=== PATIENT | male | born 1950 | race Caucasian/White ===

== ENCOUNTER → 2021-07-10 10:28 | Outpatient (BNVA) | payer MEDICARE, SELFPAY | PROVIDERS: PCP Internal Medicine; Visit Provider Urology | DX: N40.0 Benign prostatic hyperplasia without lower urinary tract symptoms (principal); R31.29 Other microscopic hematuria | CPT/HCPCS: 51798; 99212 ==

== ENCOUNTER → 2022-07-10 09:26 | Outpatient (BNVA) | payer MEDICARE, SELFPAY | PROVIDERS: PCP Internal Medicine; Visit Provider Urology | DX: N40.0 Benign prostatic hyperplasia without lower urinary tract symptoms (principal); R31.29 Other microscopic hematuria | CPT/HCPCS: 51798; 99212 ==

== ENCOUNTER 2023-07-15 09:30 | Outpatient (AMB) | payer MEDICARE, SELFPAY ==
--- NOTE | 2023-07-15 09:36 | A.OFFVIS_ITS ---
Intake Intake Visit Reasons: 1Y PSA(SET) Intake Note: Patient is present for Follow Up PSA/PVR Urology Med: Finasteride Antibiotic Allergy:None Blood Thinner: None Pharmacy: [facility] Delivery PVR: 15 Allergies lisinopril Allergy (Unknown, Verified 07/15/23 09:39) Unknown HPI HPI Comments History of Present Illness Details Chandler CHANG is a very pleasant male. He is a patient of Dr Bailey. He is seen for the following urologic conditions. - lower urinary tract symptoms Continued effective bladder emptying Low PSA Cut finasteride back to Wednesday and Lower Urinary Tract Symptoms:? Feels very happy on finasteride ?05/15 surgery with retention and catheter at [facility]. Initial placed on alpha armida..? Current treatment includes?medication, alpha armida, 5AR.? Prostate Symptom Score?01/16 , Moderate (9-19), Bother 3.? Symptoms include?01/16 , incomplete emptying, weak stream, nocturia (>2), and are progressing ?07/16 , weak stream, nocturia (>2), and are improving.? Prior Prostate Score?unknown.? PSA?06/15 2.9, 01/17 1.4, 01/18 1.2, 05/20 0.9, 06/20 0.6 ? Prostate volume?30-50gm.? Testing at next visit will include?bladder scan.? [facility] History Acquired torsion dystonia Bladder outlet obstruction BPH (benign prostatic hyperplasia) Diverticulosis of colon Essential hypertension, benign H/O urinary retention History of squamous cell carcinoma Microscopic hematuria Mitral regurgitation Nocturia Right knee meniscal tear Weak urinary stream Surgical History History of surgery Review of Systems Const Denies chills and Denies fever(s) Card Reports no additional complaints and Denies syncope Resp Denies cough GI Denies abdominal pain and Denies heartburn Reports as per HPI and Denies change in libido Neuro Denies syncope Psych Denies change in libido Endo Denies change in libido Physical Exam Const General: cooperative, healthy appearing, comfortable and no acute distress Orientation/consciousness: patient oriented x3 HEENT Face and sinus: Yes normal facial exam Mouth: moist mucous membranes Neck Neck: Yes normal visual inspection, Yes full ROM and Yes trachea midline Chest Chest palpation & inspection: normal inspection of the chest Resp Effort & Inspection: normal respiratory effort, able to speak in complete sentences and no respiratory distress GI Inspection: Yes normal to inspection Back/Spine/Pelvis Cervical Spine: normal cervical lordosis Thoracic/Lumbar Spine: thoracic and lumbar spine normal to inspection Skin General skin exam: no rashes or lesions noted Neuro General: patient oriented x3, gait normal, tone normal and moves all extremities Extrem General: Yes normal to inspection and Yes capillary refill normal Office Procedures Post Void Residual Post Residual Void Post Void Residual (PVR): 15 60319-[id number] Void Residual by ultrasound Results AMB Urinalysis, Automated UA Leukoctes 0 Wen/uL Last Edit by HAL Momin on 07/15/23 09:45 UA Nitrite Negative Last Edit by Sania Vidal [facility] on 07/15/23 09:45 UA Urobilinogen 0.2 mg/dL Last Edit by Sania Vidal Mark on 07/15/23 09:4 5 UA Protein 0 mg/dL Last Edit by Sania Vidal [facility] on 07/15/23 09:45 UA pH 6.0 Last Edit by Sania Vidal [facility] on 07/15/23 09:45 UA Blood 10 Junaid/uL Last Edit by Sania Vidal Mark on 07/15/23 09:45 UA Specific [place] 1.005 Last Edit by Sania Vidal [facility] on 07/15/23 09: 45 UA Ketone Negative Last Edit by HAL Momin on 07/15/23 09:45 UA Bilirubin 0 mg/dL Last Edit by Sania Vidal [facility] on 07/15/23 09:45 UA Glucose 0 mg/dL Last Edit by Sania Vidal [facility] on 07/15/23 09:45 Results Reviewed Results Reviewed: Laboratory Last Values Urine pH (Auto) 6.0 07/15/23 09:40 Specific [place] (Auto) 1.005 07/15/23 09:40 Urine Protein (Auto) 0 mg/dL 07/15/23 09:40 Glucose (UA)(Auto) 0 mg/dL 07/15/23 09:40 Urine Ketones (Auto) Negative 07/15/23 09:40 Urine Blood (Auto) 10 Junaid/uL 07/15/23 09:40 Urine Nitrite (Auto) Negative 07/15/23 09:40 Urine Bilirubin (Auto) 0 mg/dL 07/15/23 09:40 Urine Urobilinogen (Auto) 0.2 mg/dL 07/15/23 09:40 Leukocyte Esterase (Auto) 0 Wen/uL 07/15/23 09:40 Assessment & Plan Assessment & Plan (1) BPH (benign prostatic hyperplasia): Code(s): N40.0 - Benign prostatic hyperplasia without lower urinary tract symptoms Plan Twelve month follow-up Orders: Orders AMB Urinalysis Automated Today Z13.9 - Encounter for screening, unspecified AMB Post Void Residual by ultrasound Today N40.0 - Benign prostatic hyperplasia without lower urinary tract symptoms Patient Instructions: Imaging studies, laboratory and physical exam results were discussed and reviewed in detail. No major barriers to patient understanding were identified. An opportunity to ask questions regarding the treatment plan was provided. All questions were answered. The patient expressed understanding and agreement with the above treatment plan. The patient is aware they should contact our office by phone for worsening of their current condition or the appearance of new urologic symptoms. Compliance is encouraged with any medications and followup testing that is ordered. It is a privilege to participate in the urologic care of your patient. If you have any questions or concerns regarding treatment for the above conditions, or other urologic issues, please do not hesitate to contact me. The office telephone contact is [phone]. This note is constructed using voice recognition software. While every effort has been made to ensure accuracy procedures analyst errors may have been included. Yours sincerely, Dr Derrek Duong MD, [place] [facility] - Urology Providers of Expert, Compassionate Care for the Genitourinary System Coding Level of Care Code Est Pt Level 4 (10866) Diagnoses BPH (benign prostatic hyperplasia) N40.0 CPT Codes Post Residual Void - PVR CPT Code: 61557-Cmql Void Residual by ultrasound ([id number])
== END 2023-07-15 10:16 | disposition home or self-care (01) ==
PROVIDERS: PCP Internal Medicine; Visit Provider Urology
DX: N40.0 Benign prostatic hyperplasia without lower urinary tract symptoms (principal)
CPT/HCPCS: 99214

== ENCOUNTER → 2023-07-15 09:30 | Outpatient (BNVA) | payer MEDICARE, SELFPAY | PROVIDERS: Visit Provider Urology | DX: N40.0 Benign prostatic hyperplasia without lower urinary tract symptoms (principal) | CPT/HCPCS: 51798; 81003; 99212 ==

== ENCOUNTER 2024-07-18 09:23 | Outpatient (REF) | payer MEDICARE, SELFPAY ==
[2024-07-18 16:42] LABS: Urine Cytology See Pathology rpt
== END 2024-07-18 09:24 | disposition home or self-care (01) ==
LOC: HO.LAB 09:23
PROVIDERS: PCP Internal Medicine; Visit Provider Urology
DX: R31.29 Other microscopic hematuria (principal); N40.0 Benign prostatic hyperplasia without lower urinary tract symptoms; N43.40 Spermatocele of epididymis, unspecified
CPT/HCPCS: 51798; 81003; 88112; 99212

== ENCOUNTER 2024-07-18 09:23 | Outpatient (AMB) | payer MEDICARE, SELFPAY ==
--- NOTE | 2024-07-18 09:28 | MHC.OFFVIS ---
Intake Visit Reasons: 1Y Follow Up-PVR/Urinalysis Intake Note: Patient is Present for PVR/Urinalysis Check Urology Med: Tamsulosin, Finasteride Antibiotic Allergy: None Blood Thinner: None Last PVR: 15 Todays PVR: 23ml Patient states he was prescribed Finasteride and was instructed to take it twice a week Patient states that he D/C Finasteride due to medication causing his Nipples to be Sore Assembler Cards And Announcements Required: No Allergies lisinopril Allergy (Unknown, Verified 07/18/24 09:30) Unknown Medication List - Last Reconciled 07/18/24 by Derrek Duong MD amlodipine 10 mg PO DAILY clonazepam mg PO losartan 100 mg PO DAILY losartan-hydrochlorothiazide 100-12.5 mg tabs PO potassium chloride mEq PO spironolactone 25 mg PO DAILY tamsulosin 0.4 mg PO DAILY 90 days trihexyphenidyl mg PO HPI Comments Details: Chandler CHANG is a very pleasant male. He is a patient of Dr Bailey. He is seen for the following urologic conditions. - lower urinary tract symptoms Low PVR Stopped finasteride secondary to nipple tenderness Remain on tamsulosin Reassurance provided 12 month follow-up PSA Has left-sided spermatocele Lower Urinary Tract Symptoms:? Feels very happy on finasteride ?05/15 surgery with retention and catheter at [facility]. Initial placed on alpha armida..? Current treatment includes?medication, alpha armida, 5AR.? Prostate Symptom Score?01/16 , Moderate (9-19), Bother 3.? Symptoms include?01/16 , incomplete emptying, weak stream, nocturia (>2), and are progressing ?07/16 , weak stream, nocturia (>2), and are improving.? Prior Prostate Score?unknown.? PSA?06/15 2.9, 01/17 1.4, 01/18 1.2, 05/20 0.9, 06/20 0.6 ? Prostate volume?30-50gm.? Testing at next visit will include?bladder scan.? [facility] Medical History BPH (benign prostatic hyperplasia) Essential hypertension, benign Acquired torsion dystonia Diverticulosis of colon Mitral regurgitation Right knee meniscal tear History of squamous cell carcinoma Microscopic hematuria Nocturia Weak urinary stream H/O urinary retention Bladder outlet obstruction Surgical History History of surgery Review of Systems Const Denies chills and Denies fever(s) Card Reports no additional complaints and Denies syncope Resp Denies cough GI Denies abdominal pain and Denies heartburn Reports as per HPI and Denies change in libido Neuro Denies syncope Psych Denies change in libido Endo Denies change in libido Physical Exam Const General: cooperative, healthy appearing, comfortable and no acute distress Orientation/consciousness: patient oriented x3 HEENT Face and sinus: Yes normal facial exam Mouth: moist mucous membranes Neck Neck: Yes normal visual inspection, Yes full ROM and Yes trachea midline Chest Chest palpation & inspection: normal inspection of the chest Resp Effort & Inspection: normal respiratory effort, able to speak in complete sentences and no respiratory distress GI Inspection: Yes normal to inspection Back/Spine/Pelvis Cervical Spine: normal cervical lordosis Thoracic/Lumbar Spine: thoracic and lumbar spine normal to inspection Skin General skin exam: no rashes or lesions noted Neuro General: patient oriented x3, gait normal, tone normal and moves all extremities Extrem General: Yes normal to inspection and Yes capillary refill normal Office Procedures Post Void Residual Post Residual Void Post Void Residual (PVR): 23 [id number]-Pwhx Void Residual by ultrasound Post Void Residual Post Residual Void Post Void Residual (PVR): 0 40042-Tkof Void Residual by ultrasound Results AMB Urinalysis, Automated UA Leukoctes 0 Wen/uL Last Edit by HAL Momin on 07/18/24 10:07 UA Nitrite Negative Last Edit by HAL Momin on 07/18/24 10:07 UA Urobilinogen 0.2 mg/dL Last Edit by HAL Momin on 07/18/24 10:07 UA Protein 0 mg/dL Last Edit by HAL Momin on 07/18/24 10:07 UA pH 6.0 Last Edit by HAL Momin on 07/18/24 10:07 UA Blood 25 Junaid/uL Last Edit by Saniaterell Vidal, RMA on 07/18/24 10:07 UA Specific [place] 1.000 Last Edit by Sania Vidal, RMA on 07/18/24 10:07 UA Ketone Negative Last Edit by Sania Vidal, RMA on 07/18/24 10:07 UA Bilirubin 0 mg/dL Last Edit by Saniaterell Vidal, RMA on 07/18/24 10:07 UA Glucose 0 mg/dL Last Edit by Saniaterell Vidal, RMA on 07/18/24 10:07 Results Reviewed Results Reviewed: Laboratory Last Values Urine pH (Auto) 6.0 07/18/24 09:31 Specific [place] (Auto) 1.000 07/18/24 09:31 Urine Protein (Auto) 0 mg/dL 07/18/24 09:31 Glucose (UA)(Auto) 0 mg/dL 07/18/24 09:31 Urine Ketones (Auto) Negative 07/18/24 09:31 Urine Blood (Auto) 25 Junaid/uL 07/18/24 09:31 Urine Nitrite (Auto) Negative 07/18/24 09:31 Urine Bilirubin (Auto) 0 mg/dL 07/18/24 09:31 Urine Urobilinogen (Auto) 0.2 mg/dL 07/18/24 09:31 Leukocyte Esterase (Auto) 0 Wen/uL 07/18/24 09:31 Assessment & Plan Assessment & Plan (1) BPH (benign prostatic hyperplasia): Code(s): N40.0 - Benign prostatic hyperplasia without lower urinary tract symptoms Category: Medical (2) Spermatocele: Code(s): N43.40 - Spermatocele of epididymis, unspecified Category: Medical Plan 12 month follow-up Orders: Orders AMB Post Void Residual by ultrasound Today N40.0 - Benign prostatic hyperplasia without lower urinary tract symptoms AMB Urinalysis Automated Today Z13.9 - Encounter for screening, unspecified Urine Cytology Today R31.29 - Other microscopic hematuria Prostate Specific Antigen 364 Days N40.0 - Benign prostatic hyperplasia without lower urinary tract symptoms Medications: Discontinued finasteride Discontinued Reason: Patient Completed Course 5 mg PO DAILY 90 days 90 tabs 3RF Patient Instructions: Imaging studies, laboratory and physical exam results were discussed and reviewed in detail. No major barriers to patient understanding were identified. An opportunity to ask questions regarding the treatment plan was provided. All questions were answered. The patient expressed understanding and agreement with the above treatment plan. The patient is aware they should contact our office by phone for worsening of their current condition or the appearance of new urologic symptoms. Compliance is encouraged with any medications and followup testing that is ordered. It is a privilege to participate in the urologic care of your patient. If you have any questions or concerns regarding treatment for the above conditions, or other urologic issues, please do not hesitate to contact me. The office telephone contact is [phone]. This note is constructed using voice recognition software. While every effort has been made to ensure accuracy homoeopath errors may have been included. Yours sincerely, Dr Derrek Duong MD, [place] [facility] - Urology Providers of Expert, Compassionate Care for the Genitourinary System Coding Level of Care Code Est Pt Level 4 (45949) Diagnoses BPH (benign prostatic hyperplasia) N40.0 Spermatocele N43.40 CPT Codes Post Residual Void - PVR CPT Code: 78779-Bumd Void Residual by ultrasound ([id number]) Post Residual Void - PVR CPT Code: 93072-Mvtt Void Residual by ultrasound ([id number])
== END 2024-07-18 10:23 | disposition home or self-care (01) ==
PROVIDERS: PCP Internal Medicine; Visit Provider Urology
DX: N40.0 Benign prostatic hyperplasia without lower urinary tract symptoms (principal); N43.40 Spermatocele of epididymis, unspecified; Z13.9 Encounter for screening, unspecified
CPT/HCPCS: 99214

== ENCOUNTER 2025-03-22 09:08 | Outpatient (AMB) | payer MEDICARE, SELFPAY ==
--- NOTE | 2025-03-22 09:36 | MHC.OFFVIS ---
Intake Visit Reasons: new lumps right testicle Intake Note: Patient is present for new lumps on right testicle Urology Med: Tamsulosin, Finasteride Antibiotic Allergy: None Blood Thinner: None PVR:57ml Sammying Machine Operator Required: No Allergies lisinopril Allergy (Unknown, Verified 03/22/25 09:37) Unknown HPI Comments Details: Chandler CHANG is a very pleasant male. He is a patient of Dr Bailey. He is seen for the following urologic conditions. - lower urinary tract symptoms Follow-up as had concerns regarding testicular mass Known left-sided spermatocele on exam proximally 3-4 cm Minimal bother Right side is developing a spermatocele as well Testicles normal Reassurance provided Laboratory work shows mildly elevated creatinine and is under investigation with Nephrology Recommend 10-15 lb weight loss Lower Urinary Tract Symptoms:? Remained stable with alpha-armida ?05/15 surgery with retention and catheter at [facility]. Initial placed on alpha armida..? Current treatment includes?medication, alpha armida, 5AR.? Prostate Symptom Score?01/16 , Moderate (9-19), Bother 3.? Symptoms include?01/16 , incomplete emptying, weak stream, nocturia (>2), and are progressing ?07/16 , weak stream, nocturia (>2), and are improving.? Prior Prostate Score?unknown.? PSA?06/15 2.9, 01/17 1.4, 01/18 1.2, 05/20 0.9, 06/20 0.6 ? Prostate volume?30-50gm.? Testing at next visit will include?bladder scan.? [facility] Medical History BPH (benign prostatic hyperplasia) Essential hypertension, benign Acquired torsion dystonia Diverticulosis of colon Mitral regurgitation Right knee meniscal tear History of squamous cell carcinoma Microscopic hematuria Nocturia Weak urinary stream H/O urinary retention Bladder outlet obstruction Surgical History History of surgery Review of Systems Const Denies chills and Denies fever(s) Card Reports no additional complaints and Denies syncope Resp Denies cough GI Denies abdominal pain and Denies heartburn Reports as per HPI and Denies change in libido Neuro Denies syncope Psych Denies change in libido Endo Denies change in libido Physical Exam Const General: cooperative, healthy appearing, comfortable and no acute distress Orientation/consciousness: patient oriented x3 HEENT Face and sinus: Yes normal facial exam Mouth: moist mucous membranes Neck Neck: Yes normal visual inspection, Yes full ROM and Yes trachea midline Chest Chest palpation & inspection: normal inspection of the chest Resp Effort & Inspection: normal respiratory effort, able to speak in complete sentences and no respiratory distress GI Inspection: Yes normal to inspection Back/Spine/Pelvis Cervical Spine: normal cervical lordosis Thoracic/Lumbar Spine: thoracic and lumbar spine normal to inspection Skin General skin exam: no rashes or lesions noted Neuro General: patient oriented x3, gait normal, tone normal and moves all extremities Extrem General: Yes normal to inspection and Yes capillary refill normal Assessment & Plan Assessment & Plan (1) Microscopic hematuria: Code(s): R31.29 - Other microscopic hematuria Category: Medical (2) BPH (benign prostatic hyperplasia): Code(s): N40.0 - Benign prostatic hyperplasia without lower urinary tract symptoms Category: Medical (3) Spermatocele: Code(s): N43.40 - Spermatocele of epididymis, unspecified Category: Medical Plan Keep follow-up appointment Patient Instructions: This note is constructed using voice recognition software. While every effort has been made to ensure accuracy staff software engineer errors may have been included. Imaging studies, laboratory and physical exam results were discussed and reviewed in detail. No major barriers to patient understanding were identified. An opportunity to ask questions regarding the treatment plan was provided. All questions were answered. The patient expressed understanding and agreement with the above treatment plan. The patient is aware they should contact our office by phone for worsening of their current condition or the appearance of new urologic symptoms. Compliance is encouraged with any medications and followup testing that is ordered. It is a privilege to participate in the urologic care of your patient. If you have any questions or concerns regarding treatment for the above conditions, or other urologic issues, please do not hesitate to contact me. The office telephone contact is [phone]. Sincerely, Dr Derrek Duong MD, [place] [facility] - Urology Compassionate Specialist Care for the Genitourinary System Coding Level of Care Code Est Pt Level 3 (06817) Diagnoses Microscopic hematuria R31.29 BPH (benign prostatic hyperplasia) N40.0 Spermatocele N43.40
--- OUTSIDE RECORDS SUMMARY | 2025-03-22 09:54 | XMS_ITS | Clinical Summary ---
Author Organization [facility] Address [address] [place] [address] Care Team Providers Care Ribbon Weaver Name Role Phone Sarai Bailey MD Primary Care Provider [phone] Allergies Active Allergy Reactions Criticality Noted Date Comments Lisinopril 07/01/2018 Medications Medication Sig Dispensed Refills Start Date End Date Status clonazePAM (KLONOPIN) 0.5 MG tablet Take 0.5 mg by mouth 3 (three) times a day. 0 05/03/2018 Active trihexyphenidyl (ARTANE) 2 MG tablet Take 2 mg by mouth 3 (three) times a day with meals. 0 04/26/2018 Active warfarin (COUMADIN) 5 MG tablet Take 5 mg by mouth daily. 0 06/18/2018 Active tamsulosin (FLOMAX) 0.4 MG CAPS Take 0.4 mg by mouth daily. 0 04/26/2018 Active finasteride (PROSCAR) 5 MG tablet Take 5 mg by mouth daily. 0 04/26/2018 Active traMADol (ULTRAM) 50 MG tablet Take 50 mg by mouth every 6 (six) hours as needed for severe pain (7-10). 45 tablet 0 08/20/2018 Active aspirin 81 MG chewable tablet Chew 1 tablet (81 mg total) by mouth daily. 30 tablet 0 08/21/2018 Active metoprolol tartrate (LOPRESSOR) 25 MG tablet Take 0.5 tablets (12.5 mg total) by mouth every 12 (twelve) hours. 60 tablet 1 08/20/2018 Active pantoprazole (PROTONIX) 40 MG tablet Take 1 tablet (40 mg total) by mouth every morning on an empty stomach. 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 08/17/2018 Hypophosphatemia 08/17/2018 S/P MVR (mitral valve repair) 08/17/2018 S/P Maze operation for atrial fibrillation 08/17 Mitral valve anterior leaflet prolapse 8 Non-rheumatic mitral regurgitation 07/01/2018 Torticollis, acquired 07/01/2018 Paroxysmal atrial fibrillation 07/01/2018 Hypertension, essential 07/01/2018 Benign prostatic hyperplasia with incomplete bladder emptying 07/01/2018 Family History Medical History Relation Name Comments Heart failure Father Diabetes Mother Cancer Sister lung, bladder, brain No Sig Med Hx Son Relation Name Status Comments Father Mother Sister Alive Son Social History Tobacco Use Types Packs/Day Years Used Date Smoking Tobacco: Never Smokeless Tobacco: Never Alcohol Use Standard Drinks/Week Comments No 0 (1 standard drink = 0.6 oz pur e alcohol) Sex and Gender Information Value Date Recorded Sex Assigned at Not on file Gender Identity Not on file Sexual Orientation Not on file Last Filed Vital Signs Vital Sign Reading Time Taken Comments Blood Pressure 116/75 08/21/2018 11:00 AM EDT Pulse 82 08/21/2018 11:00 AM EDT Temperature 36.9 ??C (98.4 ??F) 08/21/2018 11:00 AM E DT Respiratory Rate 22 08/21/2018 11:00 AM EDT Oxygen Saturation 94% 08/21/2018 11:00 AM EDT Inhaled Oxygen Concentration - - Weight 73 kg (161 lb) 08/21/2018 4:55 AM EDT Height 162.6 cm (5' 4 ) 08/17/2018 6:00 AM EDT Body Mass Index 27.64 08/17/2018 6:00 AM EDT Plan of Treatment Health Maintenance Due Date Last Done Comments Hepatitis C Screening 1950 COVID-19 Vaccine (#1) 05/12/1951 Depression Screening 1961 Preventative Health Evaluation 1967 DTap / Tdap / Td (1 - Tdap) 1968 Colon Cancer Screening (Colonoscopy) 1994 Shingrix-Zoster Vaccine (1 of 2) 1999 Fall Risk Assessment 2014 Pneumococcal Vaccine (1 of 1 - PCV) 2014 Influenza Vaccine (#1) 2024 RSV Adult > 60+ Yrs or Pregn ant (1 - 1-dose 75+ series) 2024 Hepatitis B Vaccines Aged Out No long er eligible based on patient's age to complete this topic RSV Ped < 20 months Aged Out No longe r eligible based on patient's age to complete this topic Medical Devices Implanted Type Area Child Therapist Device Identifier Shelf Expiration Date Model / Serial / Lot Cellulose Surgicel 14x2in Absorbable Hemostatic Agent - [id number] - [id number] Implanted:Qty: 1 on 08/17/2018 by Alhaji Arceo MD at [facility] [place] [facility] [place] Hemostatic Agent N/A: Chest [employer] 11/28/2022 195 / / [id number] Ring Attune 18in 27mm 2 Velour Adjustable Full Flexible - [id number] - [id number] Implanted:Qty: 1 on 08/17/2018 by Alhaji Arceo MD at [facility] [place] and Med N/A: Heart [employer] 08/17/2021 AFR-27 / [id number] / Nail Oss 41cm Intramedullary Femur - [id number] - [id number] Implanted:Qty: 2 on 08/17/2018 by Alhaji Arceo MD at [facility] [place] [facility] Med N/A: Chest [employer] 01/27/2021 [id number] / / [id number] Advance Directives For more information, please contact: [phone] Latest Code Status on File Code Status Date Activated Date Inactivated Comments Full Code 08/17/2018 6:31 AM 08/21/2018 11:12 PM This code status was ascertained in the following way: discussion with patient. Care Teams Ribbon Weaver Relationship Specialty Start Date End Date Sarai Bailey MD PCP - General Internal Medicine 06/20/18
== END 2025-03-22 10:08 | disposition home or self-care (01) ==
LOC: HO.HUSH 09:09
PROVIDERS: PCP Internal Medicine; Visit Provider Urology
DX: R31.29 Other microscopic hematuria (principal); N40.0 Benign prostatic hyperplasia without lower urinary tract symptoms; N43.40 Spermatocele of epididymis, unspecified; Z13.9 Encounter for screening, unspecified
CPT/HCPCS: 99213

== ENCOUNTER → 2025-03-22 09:08 | Outpatient (BNVA) | payer MEDICARE, SELFPAY | PROVIDERS: PCP Internal Medicine; Visit Provider Urology | DX: R31.29 Other microscopic hematuria (principal); N40.0 Benign prostatic hyperplasia without lower urinary tract symptoms; N43.40 Spermatocele of epididymis, unspecified | CPT/HCPCS: 51798; 81003; 99212 ==

== ENCOUNTER 2025-07-05 11:59 | Outpatient (REF) | payer MEDICARE, SELFPAY ==
--- OUTSIDE RECORDS SUMMARY | 2025-07-05 12:28 | XMS_ITS | Clinical Summary ---
Author Organization [address] [place] [address] [place] [phone] Phone Care Team Providers Care Pastry Decorator Name Role Phone Sarai Bailey MD Primary Care Provider Allergies Active Allergy Reactions Criticality Noted Date Comments Lisinopril 10/19/2016 20 mg dosage Cough Medications clonazePAM (KlonoPIN) 0.5 mg tablet Take 1 tablet (0.5 mg total) by mouth 1 (one) time each day. 1/4 tab twice daily, full tab at night Active tamsulosin (FLOMAX) 0.4 mg 24 hr capsule Take 1 capsule (0.4 mg total) by mouth 1 (one) time each day. Take 30 mins after same meal every day. Active trihexyphenidyL (ARTANE) 2 mg tablet 1 tablet (2 mg total) 3 (three) times a day with meals. Active losartan (COZAAR) 100 mg tablet TAKE 1 TABLET EVERY DAY 90 tablet 3 01/01/2025 Active spironolactone (ALDACTONE) 25 mg tablet TAKE 1 TABLET EVERY DAY 90 tablet 3 02/23/2025 Active amLODIPine (NORVASC) 10 mg tablet Take 1 tablet (10 mg total) by mouth 1 (one) time each day. 90 tablet 1 03/05/2025 Active Active Problems Problem Noted Date Diagnosed Date Cough 05/31/2023 Overview (10/03/2024): Pt reports chornic intermittent cough with occasional sputum production. Obstructive sleep apnea 09/20/2020 Overview (10/03/2024): [facility] Home Sleep Apnea Test: Date 09/12/2020; Wt 145#; BMI 25; IRVIN (AHI) 5, AI 1; HI 4; Unclassified apneas 0; Obstructive apneas 6; Central apneas 0; Mixed apneas 0; hypopneas 32; average oxygen saturation 94% (lowest 84% without saturations <88% for 5% or more of study) - Obstructive Sleep Apnea - mild; mostly hypopneas; without sleep related hypoventilation by 2019 home sleep apnea test. Urinary retention 01/30/2018 Overview (10/03/2024): Started during shoulder surgery, bladder ultrasound favorable. Started Flomax, follows with urology, Dr. Rosario. Angiodysplasia of colon without bleeding 018 Overview (10/03/2024): Incidental finding at colonoscopy 12/30/2017. A-fib ([facility] V24, [facility] V28) 12/03/2017 Overview (10/03/2024): Status post maze procedure with his mitral valve surgery. Left atrial appendage ligation. No recurrence. No anticoagulation indicated at this point. Last Assessment & Plan: Maintaining sinus rhythm with no recurrent atrial fibrillation or flutter. High vagal tone results in a relative sinus bradycardia off of any rate slowing medicines. No indication for anticoagulation given he has had no atrial fibrillation and had a very effective left atrial appendage ligation. Assessment & Plan (11/07/2024 5:22 PM EST): Benign prostatic hyperplasia with lower urinary tract symptoms 10/20/2017 Overview (10/03/2024): Follows with urology Assessment & Plan (11/07/2024 5:22 PM EST): Tear of meniscus of knee 07/28/2013 Overview (10/03/2024): S/p repair by Dr. theresa Doctor 05/2013 Ventral hernia 01/19/2012 Overview (10/03/2024): IMO update Diverticulitis of colon without hemorrhage 08/31 Overview (10/03/2024): Incidental finding at colonoscopy 08/31/2007. 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 Continue healthy diet and regular exercise. Assessment & Plan (11/07/2024 5:22 PM EST): Encounters Date Type Department Care Team Description 06/21/2025 1:15 PM EDT Office Visit Nephrology [address] [phone] Juancho Prather MD Stage 3 chronic kidney disease, unspecified whether stage 3a or 3b CKD (CMS/HCC V24, CMS/HCC V28) (Primary Dx); Essential hypertension, benign; Urinary retention 05/15/2025 10:15 AM EDT Office Visit Pulmonolgy [facility] [address] [facility] [address] [place] [phone] Galileo Urrutia MD Obstructive sleep apnea (Primary Dx) 04/19/2025 1:00 PM EDT Office Visit [facility] [address] [phone] Sarai Bailey MD Essential hypertension, benign (Primary Dx); Acquired torsion dystonia; Chronic kidney disease, unspecified CKD stage; Atrial fibrillation, unspecified type (CMS/HCC V24, CMS/HCC V28); H/O mitral valve replacement; Vitamin D deficiency disease; Obstructive sleep apnea from Last 3 Months Immunizations Name Administration Dates Next Due H1N1 Inj Preservative Free 12/06/2009 Influenza Quadravalent, MDCK , 0.5ml, with preservative (Flucelvax) 6mo and older 10/01/2017 Influenza trivalent, 0.5mL ( Fluad) 65yo and older 11/08/2024,10/25/2023,09/25/2022,09/03,09/21/2020,10/01/2019,08/11/2018 ,08/30/2016,09/11/2015,08/29/2014,02/2013,09/21/2012,08/30/2011, 0,12/06/2009,09/22/2007 Influenza, Unspecified 09/03/2021,09/21/2020,11/2013 Pneumococcal conjugate 13 va lent (Prevnar 13, PCV13) 2mo and older 09/11/2015 Pneumococcal polysaccharide 23 valent (Pneumovax 23) 2yo and older 10/19/2016 Td Tetanus diptheria (Tdvax) 7yo and older 06/11/2003 Td, Unspecified 06/11/2003 Tdap Tetanus diptheria acell ular pertussis (Boostrix; Adacel) 7yo and older 10/25/2023,01/19/2012 Zoster Live 03/09/2013 Surgical History Surgery Date Site/Laterality Comments COLONOSCOPY 08/31/2007 PROCEDURE: HISTORICAL COLONOSCOPY; COMMENT: negative COLONOSCOPY 12/30/2017 PROCEDURE: HISTORICAL COLONOSCOPY; COMMENT: Mus[facility]; no polyps; 3 small angiodysplasias; diverticulosis. OTHER SURGICAL HISTORY PROCEDURE: HISTORICAL SQUAMOUS CELL CA; COMMENT: SCC 02/09 left yarsanism (in situ) OTHER SURGICAL HISTORY PROCEDURE: MD VALVULOPLASTY MITRAL VALVE W/CARDIAC BYPASS EXCISION BENIGN SKIN LESION TRUNK / ARM / LEG PROCEDURE: MD EXCISION TUMOR SOFT TISSUE BACK/FLANK SUBQ <3CM OTHER SURGICAL HISTORY PROCEDURE: MD ARTHROTOMY W/MENISCUS REPAIR KNEE ROTATOR CUFF REPAIR Right PROCEDURE: HISTORICAL ROTATOR CUFF REPAIR Medical History Medical History Date Comments Lipoma of other skin and sub cutaneous tissue 12/16/2006 DX:Lipoma of other skin and subcutaneous tissue Diverticulosis of colon (wit hout mention of hemorrhage) 08/31/2007 DX:Diverticulosis of colon ( without mention of hemorrhage); COMMENT: Incidental finding at colonoscopy 08/31/2007. Special screening for malign ant neoplasms, colon 08/31/2007 DX:Special screening for mal ignant neoplasms, colon; COMMENT: Negative colonoscopy 08/31/2007, no colon cancer screening needed for 10 years. 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 theresa Doctor 05/2013 Benign prostatic hyperplasia with lower urinary tract symptoms 10/20/2017 DX:Benign prostatic hyper plasia with lower urinary tract symptoms; COMMENT: Follows with urology Angiodysplasia of colon with out bleeding 01/06/2018 DX:Angiodysplasia of colon w ithout bleeding; COMMENT: Incidental finding at colonoscopy 12/30/2017. Urinary retention 01/30/2018 DX:Urinary ret ention; COMMENT: Started during shoulder surgery, bladder ultrasound favorable. Started Flomax, follows with urology, Dr. Rosario. History of squamous cell car cinoma of skin DX:History of squamous cell carcinoma of skin; COMMENT: SCC 02/09 left yarsanism (in situ) Family History Medical History Relation Name Comments Heart failure Father 1978 Other: heart disease, ?CHF, no real [place] Father Prostate cancer Father pt really no t sure Depression Mother ? depression, l ived to age 92 Diabetes Mother Other: afib Mother Bladder Cancer Sister Brain cancer Sister Lung cancer Sister Relation Name Status Comments Father Mother Sister Social History Tobacco Use Types Packs/Day Years Used Date Smoking Tobacco: Never Passive Smoke Exposure: Never Smokeless Tobacco: Never Alcohol Use Standard Drinks/Week Comments No 0 (1 standard drink = 0.6 oz pur e alcohol) Housing Instability Answer Date Recorde d Are you worried that in the next 2 months you may not have stable housing? No 04/17/2025 Food Access & Nutrition Answer Date Rec orded Do you have access to a vari ety of food including fruits and vegetables? Yes 04/17/2025 Health Literacy Answer Date Recorded How often do you need to hav e someone help you when you read instructions, pamphlets, or other written material from your doctor or pharmacy? Never 04/17/2025 Caregiver: How often do you need to have someone help you when you read instructions, pamphlets, or other written material from your doctor or pharmacy? Not on file 04/17/2025 Financial Risk Answer Date Recorded How hard is it for you to pa y for the very basics like food, housing, medical care, and air conditioning / heating? Patient declined 04/17/2025 Transportation Answer Date Recorded Has the lack of transportati on kept you from meetings, work, or from getting things needed for daily living? No Has the lack of transportati on kept you from medical appointments or from getting medications? No 04/17/2025 Social Isolation Answer Date Recorded How often do you feel lonely or isolated from th ose around you? Never 04/17/2025 Food Risk Answer Date Recorded Within the past 12 months we worried whether our food would run out before we got money to buy more. Never true 04/17/2025 Within the past 12 months th e food we bought just didn't last and we didn't have money to get more. Never true 04/17/2025 Dependent Care Answer Date Recorded Do you need help finding or paying for care for your loved ones. For example, children's entertainer or elderly care for an older adult? No 04/17/2025 Education Answer Date Recorded Do you think completing more education or training, like finishing a GED, going to college, or learning a trade, would be helpful for you? N/A 04/17/2025 Employment and Income Answer Date Recor ded During the last four weeks, have you been actively looking for work? No 04/17/2025 Living Situation Answer Date Recorded What is your living situation? 0 04/17/2025 Sex and Gender Information Value Date Recorded Sex Assigned at Not on file Legal Sex Male 11:27 PM EST Gender Identity Not on file Sexual Orientation Not on file Obstetrics History Last Filed Vital Signs Vital Sign Reading Time Taken Comments Blood Pressure 114/59 06/21/2025 1:18 PM EDT Pulse 52 06/21/2025 1:18 PM EDT Temperature 36.1 C (97 F) 05/15/2025 10:06 AM EDT Respiratory Rate 17 05/15/2025 10:06 AM EDT Oxygen Saturation 100% 05/15/2025 10:06 AM EDT Inhaled Oxygen Concentration - - Weight 68.9 kg (152 lb) 06/21/2025 1:18 PM EDT Height 162.6 cm (5' 4 ) 05/15/2025 10:06 AM EDT Body Mass Index 26.09 05/15/2025 10:06 AM EDT Plan of Treatment Upcoming Encounters Date Type Department Care Team (Late st Contact Info) Description 08/21/2025 1:00 PM EDT Office Visit [facility] [address] [facility] [address] [place] [phone] Juan F Duenas MD [address] [facility] [address] [place] [address] 11/12/2025 11:15 AM EST Office Visit Adult Medicine [facility] [address] [place] [phone] Sarai Bailey MD [address] [place] [address] 05/15/2026 9:45 AM EDT Office Visit Pulmonolgy - [place] [address] [facility] [address] [place] [phone] Galileo Urrutia MD 175 [facility] [address] [place] [address] Health Maintenance Due Date Last Done Comments Zoster Vaccines (1 of 2) 05/04/2013 03/09/2013 COVID-19 Vaccine ( season) 2024 09/25/2021, 03/27/2021, 03/06/2021 RSV Immunization Adult Patients (1 - 1-dose 75+ series) 2024 Influenza Vaccine (#1) 2025 , 10/25/2023, 09/25/2022, Additional history exists Falls Risk Assessment 11/07/2025 11/07/2024, 023 Medicare Annual Wellness Visit 11/07/2025 11/07/2024 Hypertension/CHF/CAD Annual BMP Blood Test 01/31/2026 01/31/2025, 11/01/2024, 10/25/2023, Additional history exists Social Influencers of Health Screening 04/17/2026 04/17/2025 Colorectal Cancer Screening: Colonoscopy 12/30/2027 12/30/2017 Cholesterol Screening (Lipid Panel) 11/01/2029 11/01/2024, 05/26/2023 DTaP,Tdap,and Td Vaccines (5 - Td or Tdap) 10/25/2033 10/25/2023, 01/19/2012, 06/11/2003, Additional history exists Hepatitis C Screening Completed 03/11/2013 Pneumococcal Vaccine: 50+ Years Completed 10/19/2016, 09/11/2015 Depression Screening Completed 04/17/2025, 10/25/20 23 HIB Vaccines Aged Out No longer eligi ble based on patient's age to complete this topic HPV Vaccines Aged Out No longer eligi ble based on patient's age to complete this topic Hepatitis A Vaccines Aged Out No long er eligible based on patient's age to complete this topic Hepatitis B Vaccines Aged Out No long er eligible based on patient's age to complete this topic IPV Vaccines Aged Out No longer eligi ble based on patient's age to complete this topic MMR Vaccines Aged Out No longer eligi ble based on patient's age to complete this topic Meningococcal ACWY Vaccine Aged Out N o longer eligible based on patient's age to complete this topic Meningococcal B Vaccine Aged Out No l onger eligible based on patient's age to complete this topic RSV Immunization Patients Under 20 months Aged Out No longer eligible based on patient's age to complete this topic Varicella Vaccines Aged Out No longer eligible based on patient's age to complete this topic Procedures Procedure Name Priority Date/Time Associated Diagnosis Comments BASIC METABOLIC PANEL Routine 01/31/2025 2:15 PM EST Stage 3 chronic kidney disease, unspecified whether stage 3a or 3b CKD (CMS/HCC V24, CMS/HCC V28) LIPID PANEL WITH REFLEX TO DIRECT LDL Routine 11/01/2024 10:36 AM EST Hyperglycemia HM DEPRESSION SCREENING Routine 10/25/2023 FALLS RISK ASSESSMENT Routine 10/25/2023 COLONOSCOPY Routine 12/30/2017 HEPATITIS C SCREENING Routine 03/11/2013 from Last 3 Months or Most Recently Relevant to Health Maintenance Results * (ABNORMAL) Basic metabolic panel (01/31/2025 2:15 PM EST) Pathologist [facility] Sodium 133 133 - 145 mmol/L LAB CHEMISTRY METHOD 01/31/2025 6:27 PM [facility] Potassium 4.4 3.5 - 5.5 mmol/L LAB CHEMISTRY METHOD 01/31/2025 6:27 PM [facility] Comment:Hemolysis present Chloride 102 96 - 110 mmol/L LAB CHEMISTRY METHOD 01/31/2025 6:27 PM [facility] CO2 19(L) 21 - 32 mmol/L LAB CHEMISTRY METHOD 01/31/2025 6:27 PM [facility] Anion Gap 12(H) 3 - 11 LAB CHEMISTRY METHOD 01/31/2025 6:27 PM [facility] Glucose 88 70 - 100 mg/dL LAB CHEMISTRY METHOD 01/31/2025 6:27 PM [facility] BUN 23 5 - 25 mg/dL LAB CHEMISTRY METHOD 01/31/2025 6:27 PM [facility] Creatinine 1.33(H) 0.70 - 1.30 mg/dL LAB CHEMISTRY METHOD 01/31/2025 6:27 PM [facility] eGFR 56(L) >=60 mL/min/1. 73m2 LAB CHEMISTRY METHOD 01/31/2025 6:27 PM [facility] Comment:Calculation based on the Chronic Kidney Disease Epidemiology Collaboration (CKD-EPI) equation refit without adjustment for race. BUN/Creatinine Ratio 17.3 LAB CHEMISTRY METHOD 01/31/2025 6:27 PM [facility] Calcium 9.2 8.5 - 10.5 mg/dL LAB CHEMISTRY METHOD 01/31/2025 6:27 PM [facility] Blood Venous blood specimen / Unknown Venipuncture / Unknown 01/31/2025 2:15 PM EST 01/31/2025 2:15 PM EST us Juancho Prather MD LAB BLOOD ORDERABLES Final Res ult [facility] [address] [place] [address], * Lipid panel with reflex to direct LDL (11/01/2024 10:36 AM EST) Cholesterol 137 0 - 200 mg/dL LAB CHEMISTRY METHOD 11/01/2024 2:37 PM [facility] Triglycerides 70 0 - 150 mg/dL LAB CHEMISTRY METHOD 11/01/2024 2:37 PM [facility] HDL 43 >=40 mg/dL LAB CHEMISTRY METHOD 11/01/2024 2:37 PM [facility] LDL Calculated 80 0 - 100 mg/dL LAB CHEMISTRY METHOD 11/01/2024 2:37 PM [facility] VLDL Cholesterol Rogelio 14 mg/dL LAB CHEMISTRY METHOD 11/01/2024 2:37 PM [facility] Non HDL Chol. (LDL+VLDL) 94 <145 mg/dL LAB CHEMISTRY METHOD 11/01/2024 2:37 PM [facility] Chol/HDL Ratio 3.2 0.0 - 4.4 LAB CHEMISTRY METHOD 11/01/2024 2:37 PM [facility] Blood Venous blood specimen / Unknown Venipuncture / Unknown 11/01/2024 10:36 AM EST 11/01/2024 10:36 AM EST Sarai Bailey MD LAB BLOOD ORDERABLES Final Resul t [facility] [address] [place] [address], [place] [phone] * Falls Risk Assessment (10/25/2023) Falls Risk Assessment Abstracted Historical Provider HEALTH MAINTENANCE Final Result * Depression Screening (10/25/2023) Depression Screening Abstracted Historical Provider HEALTH MAINTENANCE Final Result * Colonoscopy (12/30/2017) Pathologist [facility] Colonoscopy No interpretatio n, abstraced Anatomical Region Laterality Modality Other Historical Provider HEALTH MAINTENANCE Final Result * Hepatitis C Screening (03/11/2013) Hepatitis C Screening Abstracted Historical Provider HEALTH MAINTENANCE Final Result from Last 3 Months or Most Recently Relevant to Health Maintenance Insurance MEDICARE [facility] Care Teams Pastry Decorator Relationship Specialty Start Date End Date Sarai Bailey MD [address] [place] [address] PCP - General 03/23/1998
--- OUTSIDE RECORDS SUMMARY | 2025-07-05 12:28 | XMS_ITS | Clinical Summary ---
Author Organization [facility] Facility Address [address] [place] [address] Care Team Providers Care Concrete Pipe Maker Name Role Phone Unavailable Primary Care Provider Unavailabl e Allergies Active Allergy Reactions Criticality Noted Date Comments Lisinopril 10/19/2016 20 mg dosage Cough Medications amLODIPine (NORVASC) 10 MG tablet Take 10 mg by mouth in the morning. 03/05/2025 Active clonazePAM (KlonoPIN) 0.5 MG tablet Take 0.5 mg by mouth in the morning. 05/03/2018 Active losartan (COZAAR) 100 MG tablet Take 100 mg by mouth in the morning. 01/01/2025 Active spironolactone (ALDACTONE) 25 MG tablet Take 25 mg by mouth in the morning. 02/23/2025 Active tamsulosin (FLOMAX) 0.4 MG 24 hr capsule Take 0.4 mg by mouth in the morning. 04/26/2018 Active trihexyphenidyl (ARTANE) 2 MG tablet 2 mg 04/26/2018 Active Active Problems Problem Noted Date Diagnosed Date Cough 05/31/2023 Overview (06/22/2025): Pt reports chornic intermittent cough with occasional sputum production. Obstructive sleep apnea 09/20/2020 Overview (06/22/2025): [facility] Home Sleep Apnea Test: Date 09/12/2020; Wt [...] hypoventilation by 2019 home sleep apnea test. History of repair of mitral valve 08/17/2018 History of maze procedure for atrial fibrillatio n 08/17/2018 Hypophosphatemia 08/17/2018 Mitral valve anterior leaflet prolapse 8 Non-rheumatic mitral regurgitation 07/01/2018 Paroxysmal atrial fibrillation 07/01/2018 Torticollis 07/01/2018 Retention of urine 01/30/2018 Overview (06/22/2025): Started during shoulder surgery, bladder ultrasound favorable. Started Flomax, follows with urology, Dr. Rosario. Atrial fibrillation 12/03/2017 Overview (06/22/2025): Status post maze procedure with his mitral [...] a very effective left atrial appendage ligation. Tear of meniscus of knee 07/28/2013 Overview (06/22/2025): S/p repair by Dr. theresa Doctor 05/2013 Ventral hernia 01/19/2012 Overview (06/22/2025): IMO update Diverticulitis of colon 08/31/2007 Overview (06/22/2025): Incidental finding at colonoscopy 08/31/2007. Benign essential hypertension 12/28/2005 Overview (06/22/2025): Primary hypertension Last Assessment & Plan: Well-controlled on multiple medications and a low-sodium diet. Continue healthy diet and regular exercise. 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 [address] [phone] Sania Tijerina 06/22/2025 Orders Only [facility] [address] [phone] Sania Tijerina from Last 3 Months Social History Tobacco Use Types Packs/Day Years Used Date Smoking Tobacco: Never Assessed Sex and Gender Information Value Date Recorded Sex Assigned at Not on file Legal Sex Male 9:59 AM EDT Gender Identity Not on file Sexual Orientation Not on file Plan of Treatment Upcoming Encounters Date Type Department Care Team (Late st Contact Info) Description 06/05/2026 1:00 PM EDT Office Visit [facility] [address] [place] [phone] Juancho Prather MD [address] [phone] Health Maintenance Due Date Last Done Comments Colorectal Cancer Screening: Annual FOBT 1998 Colorectal Cancer Screening: Colonoscopy 1998 Colorectal Cancer Screening: Sigmoidoscopy 1998 Influenza Vaccine (#1) 2025 4, 10/25/2023, 09/25/2022, Additional history exists Pneumococcal Vaccine: 50+ Years Completed 10/19/2016, 09/11/2015 Hepatitis B Vaccine Aged Out No longe r eligible based on patient's age to complete this topic
--- OUTSIDE RECORDS SUMMARY | 2025-07-05 12:28 | XMS_ITS | Clinical Summary ---
Author Organization [facility] Address [address] [place] [address] Care Team Providers Care Dental Professional Name Role Phone Sarai Bailey MD Primary Care Provider [phone] Allergies Active Allergy Reactions Criticality Noted Date [...] 82 08/21/2018 11:00 AM EDT Temperature 36.9 C (98.4 F) 08/21/2018 11:00 AM EDT Respiratory Rate 22 08/21/2018 11:00 AM EDT [...] Vaccine (1 of 1 - PCV) 2014 RSV Adult > 60+ Yrs or Pregn ant (1 - 1-dose 75+ series) 2024 Influenza Vaccine (#1) 2025 Hepatitis B Vaccines Aged Out No long er eligible based on patient's age to complete this topic RSV Ped < 20 months Aged Out No longe r eligible based on patient's age to complete this topic Medical Devices Implanted Type Area Tacking Stitch Remover Device Identifier Shelf Expiration Date Model / Serial / Lot Cellulose Surgicel 14x2in Absorbable Hemostatic Agent - [id number] - [id number] Implanted:Qty: 1 on 08/17/2018 by Alhaji Arceo MD at [facility] [place] [facility] [place] Hemostatic Agent N/A: Chest [employer] 11/28/2022 1952 / / [id number] Ring Attune 18in 27mm 2 Velour Adjustable Full Flexible - [id number] - [id number] Implanted:Qty: 1 on 08/17/2018 by Alhaji rAceo MD at [facility] [place] [facility] N/A: Heart [employer] 08/17/2021 AFR-27 / [id number] / Nail Oss 41cm Intramedullary Femur - [id number] - [id number] Implanted:Qty: 2 on 08/17/2018 by Alhaji Arceo MD at [facility] [place] [facility] [place] N/A: Chest [employer] 01/27/2021 [id number] / / [id number] Advance Directives For more information, please contact: [phone] Latest Code Status on File Code Status Date Activated Date Inactivated Comments Full Code 08/17/2018 6:31 AM 08/21/2018 11:12 PM This code status was ascertained in the following way: discussion with patient. Care Teams Dental Professional Relationship Specialty Start Date End Date Sarai Bailey MD PCP - General Internal Medicine 06/20/18
--- OUTSIDE RECORDS SUMMARY | 2025-07-05 12:28 | XMS_ITS ---
Author Name [facility] Organization Unknown Care Team Organization Name Specialty Phone Email Start Date End Da te [facility] Nikki Amaro Primary Care 05/07/2023 024 [facility] Roslyn Dailey Primary Care 10/06/2022 07/17/2024
[2025-07-05 13:55] LABS: Prostate Specific Antigen 4.54 ng/mL (<0.05-4.0)
== END 2025-07-05 12:00 | disposition home or self-care (01) ==
LOC: HO.LAB 11:59
PROVIDERS: PCP Internal Medicine; Visit Provider Urology
DX: N40.0 Benign prostatic hyperplasia without lower urinary tract symptoms (principal); Z12.5 Encounter for screening for malignant neoplasm of prostate
CPT/HCPCS: 36415; 84153

== ENCOUNTER 2025-07-19 09:24 | Outpatient (AMB) | payer MEDICARE, SELFPAY ==
--- NOTE | 2025-07-19 09:26 | A.OFFVIS_ITS ---
Intake Visit Reasons: 1y/PSA/UA/PVR Intake Note: Patient is present for 1 yr follow up Urology Med: Tamsulosin, Antibiotic Allergy: None Blood Thinner: None Labs done :07/05/25 PSA 4.54 PVR:15 mls Software Controls Engineer Required: No Accompanied by: Self / Same As Patient Allergies lisinopril Allergy (Unknown, Verified 07/19/25 09:27) Unknown HPI Comments Details: Chandler CHANG is a very pleasant male. He is a patient of Dr Bailey. He is seen for the following urologic conditions. - lower urinary tract symptoms - left-sided spermatocele Significant jump in PSA Start dutasteride Recent renal bladder ultrasound 60 g prostate Repeat lab work in 4 months DON 2+, small superficial vascular nodule left apex Lower Urinary Tract Symptoms:? Remained stable with alpha-armida ?05/15 surgery with retention and catheter at [facility]. Initial placed on alpha armida..? Current treatment includes?medication, alpha armida, 5AR.? Prostate Symptom Score?01/16 , Moderate (9-19), Bother 3.? Symptoms include?01/16 , incomplete emptying, weak stream, nocturia (>2), and are progressing ?07/16 , weak stream, nocturia (>2), and are improving.? Prior Prostate Score?unknown.? PSA?06/15 2.9, 01/17 1.4, 01/18 1.2, 05/20 0.9, 06/20 0.6, 07/23 4.5 Spermatocele Bilateral Left 3-4 cm - minimal bother COUNTS INCLUDE 234 BEDS AT THE [facility] Medical History BPH (benign prostatic hyperplasia) Essential hypertension, benign Acquired torsion dystonia Diverticulosis of colon Mitral regurgitation Right knee meniscal tear History of squamous cell carcinoma Microscopic hematuria Nocturia Weak urinary stream H/O urinary retention Bladder outlet obstruction Surgical History History of surgery Review of Systems Const Denies chills and Denies fever(s) Card Reports no additional complaints and Denies syncope Resp Denies cough GI Denies abdominal pain and Denies heartburn Reports as per HPI and Denies change in libido Neuro Denies syncope Psych Denies change in libido Endo Denies change in libido Physical Exam Const General: cooperative, healthy appearing, comfortable and no acute distress Orientation/consciousness: patient oriented x3 HEENT Face and sinus: Yes normal facial exam Mouth: moist mucous membranes Neck Neck: Yes normal visual inspection, Yes full ROM and Yes trachea midline Chest Chest palpation & inspection: normal inspection of the chest Resp Effort & Inspection: normal respiratory effort, able to speak in complete sentences and no respiratory distress GI Inspection: Yes normal to inspection Rectal Exam - Male: Yes normal sphincter tone and Yes prostate normal Male General Exam: Yes normal external exam Penis: normal penis and circumcised Meatus: meatus normal Scrotum: scrotum normal Testes: Testes normal Back/Spine/Pelvis Cervical Spine: normal cervical lordosis Thoracic/Lumbar Spine: thoracic and lumbar spine normal to inspection Skin General skin exam: no rashes or lesions noted Neuro General: patient oriented x3, gait normal, tone normal and moves all extremities Extrem General: Yes normal to inspection and Yes capillary refill normal Assessment & Plan Assessment & Plan (1) Spermatocele: Code(s): N43.40 - Spermatocele of epididymis, unspecified Category: Medical (2) Elevated PSA: Code(s): R97.20 - Elevated prostate specific antigen [PSA] Category: Medical Plan Start dutasteride Four month follow-up PSA Orders: Orders PSA,Total (Free>4and<10) 4 Months R97.20 - Elevated prostate specific antigen [PSA] Medications: New dutasteride 0.5 mg PO DAILY 90 caps 1RF 90 days N13.8 - Other obstructive and reflux uropathy, N40.1 - Benign prostatic hyperplasia with lower urinary tract symptoms, R97.20 - Elevated prostate specific antigen [PSA] Patient Instructions: This note is constructed using voice recognition software. While every effort has been made to ensure accuracy peoplesoft financials consultant errors may have been included. Imaging studies, laboratory and physical exam results were discussed and reviewed in detail. No major barriers to patient understanding were identified. An opportunity to ask questions regarding the treatment plan was provided. All questions were answered. The patient expressed understanding and agreement with the above treatment plan. The patient is aware they should contact our office by phone for worsening of their current condition or the appearance of new urologic symptoms. Compliance is encouraged with any medications and followup testing that is ordered. It is a privilege to participate in the urologic care of your patient. If you have any questions or concerns regarding treatment for the above conditions, or other urologic issues, please do not hesitate to contact me. The office telephone contact is [phone]. Sincerely, Dr Derrek Duong MD, [facility] - Urology Compassionate Specialist Care for the Genitourinary System Coding Level of Care Code Est Pt Level 4 (66029) Diagnoses Spermatocele N43.40 Elevated PSA R97.20
--- OUTSIDE RECORDS SUMMARY | 2025-07-19 10:33 | XMS_ITS | Clinical Summary ---
Author Organization [facility] Address [address] [place] [address] Care Team Providers Care Fabrication Specialist Name Role Phone Unavailable Primary Care Provider [...] production. Obstructive sleep apnea 09/20/2020 Overview (06/22/2025): [facility] Home Sleep Apnea Test: Date 09/12/2020; Wt [...] Telephone [facility] [address] [phone] Sania Tijerina 06/22/2025 Orders Only [facility] [address] [phone] Sania Tijerina from Last 3 [...] Office Visit [facility] [address] [place] [phone] Juancho Prather MD [address] [phone] Health Maintenance Due Date Last [...]
--- OUTSIDE RECORDS SUMMARY | 2025-07-19 10:33 | XMS_ITS | Clinical Summary ---
Author Organization [facility] Address [address] [place] [address] Care Team Providers Care Aws Solution Architect Name Role Phone Sarai Bailey MD Primary Care Provider [phone] Allergies Active Allergy Reactions Criticality Noted Date [...] this topic Medical Devices Implanted Type Area Can Top Setter Device Identifier Shelf Expiration Date Model / Serial / Lot Cellulose Surgicel 14x2in Absorbable Hemostatic Agent - [id number] - [id number] Implanted:Qty: 1 on 08/17/2018 by Alhaji Arceo MD at [facility] and Med Hemostatic Agent N/A: Chest [employer] 11/28/2022 1951 / / [id number] Ring Attune 18in 27mm 2 Velour Adjustable Full Flexible - [id number] - [id number] Implanted:Qty: 1 on 08/17/2018 by Alhaji Arceo MD at [facility] and Med N/A: Heart [employer] 08/17/2021 AFR-27 / [id number] / Nail Oss 41cm Intramedullary Femur - [id number] - [id number] Implanted:Qty: 2 on 08/17/2018 by Alhaji Arceo MD at [facility] and Med N/A: Chest [employer] 01/27/2021 [id number] / / [id number] Advance Directives For more information, please contact: [phone] Latest Code Status on File Code Status Date Activated Date Inactivated Comments Full Code 08/17/2018 6:31 AM 08/21/2018 11:12 PM This code status was ascertained in the following way: discussion with patient. Care Teams Aws Solution Architect Relationship Specialty Start Date End Date Sarai Bailey MD PCP - General Internal Medicine 06/20/18
--- OUTSIDE RECORDS SUMMARY | 2025-07-19 10:33 | XMS_ITS | Clinical Summary ---
Author Organization [address] [place] [address] [place] [phone] Phone Care Team Providers Care Golf Professional Name Role Phone Sarai Bailey MD Primary Care Provider [phone] Allergies Active Allergy Reactions Criticality Noted Date [...] production. Obstructive sleep apnea 09/20/2020 Overview (10/03/2024): [facility] Home Sleep Apnea Test: Date 09/12/2020; Wt [...] (10/03/2024): Incidental finding at colonoscopy 12/30/2017. A-fib ([facility] V24, [facility] V28) 12/03/2017 Overview (10/03/2024): Status post maze [...] 06/21/2025 1:15 PM EDT Office Visit Nephrology [address] [phone] Juancho Prather MD Stage 3 chronic kidney disease, unspecified whether stage 3a or 3b CKD (CMS/HCC V24, CMS/HCC V28) (Primary Dx); Essential hypertension, benign; Urinary retention 05/15/2025 10:15 AM EDT Office Visit Pulmonolgy 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 For example, child protective services social worker or elderly care for an older adult? [...] Description 08/21/2025 1:00 PM EDT Office Visit [facility] [address] [facility] [address] [place] [address] Juan F Duenas MD [address] [facility] [address] [place] [address] 11/12/2025 11:15 AM EST Office Visit Adult Medicine [facility] [address] [place] [phone] Sarai Bailey MD [address] [place] [address] 05/15/2026 9:45 AM EDT Office Visit Pulmonolgy - [place] [address] [facility] [address] [place] [phone] Galileo Urrutia MD [address] [facility] [address] [place] [address] Health Maintenance Due Date Last Done Comments [...] Procedure Name Priority Date/Time Associated Diagnosis Comments EXTERNAL CLINICAL LAB 07/05/2025 BASIC METABOLIC PANEL Routine 01/31/2025 2:15 PM EST Stage 3 chronic kidney disease, unspecified whether stage 3a or 3b CKD (CMS/HCC V24, CMS/HCC V28) LIPID PANEL WITH REFLEX TO DIRECT LDL Routine 11/01/2024 10:36 AM EST Hyperglycemia DEPRESSION SCREENING Routine 10/25/2023 FALLS RISK ASSESSMENT Routine 10/25/2023 COLONOSCOPY Routine 12/30/2017 HEPATITIS C SCREENING Routine 03/11/2013 from Last 3 Months or Most Recently Relevant to Health Maintenance Results * External clinical lab (07/05/2025) us Provider [facility] LAB BLOOD ORDERABLES Fin al Result * (ABNORMAL) Basic metabolic panel (01/31/2025 2:15 PM EST) Sodium 133 133 - 145 mmol/L LAB CHEMISTRY METHOD 01/31/2025 6:27 PM [facility] Potassium 4.4 3.5 - 5.5 mmol/L LAB CHEMISTRY METHOD 01/31/2025 6:27 PM [facility] Comment:Hemolysis present Chloride 102 96 - 110 mmol/L LAB CHEMISTRY METHOD 01/31/2025 6:27 PM [facility] CO2 19(L) 21 - 32 mmol/L LAB CHEMISTRY METHOD 01/31/2025 6:27 PM [facility] Anion Gap 12(H) 3 - 11 LAB CHEMISTRY METHOD 01/31/2025 6:27 PM [facility] Glucose 88 70 - 100 mg/dL LAB CHEMISTRY METHOD 01/31/2025 6:27 PM [facility] BUN 23 5 - 25 mg/dL LAB CHEMISTRY METHOD 01/31/2025 6:27 PM [facility] Creatinine 1.33(H) 0.70 - 1.30 mg/dL LAB CHEMISTRY METHOD 01/31/2025 6:27 PM [facility] eGFR 56(L) >=60 mL/min/1. 73m2 LAB CHEMISTRY METHOD 01/31/2025 6:27 PM [facility] Comment:Calculation based on the Chronic Kidney Disease Epidemiology Collaboration (CKD-EPI) equation refit without adjustment for race. BUN/Creatinine Ratio 17.3 LAB CHEMISTRY METHOD 01/31/2025 6:27 PM [facility] Calcium 9.2 8.5 - 10.5 mg/dL LAB CHEMISTRY METHOD 01/31/2025 6:27 PM [facility] Blood Venous blood specimen / Unknown Venipuncture / Unknown 01/31/2025 2:15 PM EST 01/31/2025 2:15 PM EST us Juancho Prather MD LAB BLOOD ORDERABLES Final Res ult [facility] [address] [place] [address], [place] [phone] * Lipid panel with reflex to direct LDL (11/01/2024 10:36 AM EST) Cholesterol 137 0 - 200 mg/dL LAB CHEMISTRY METHOD 11/01/2024 2:37 PM [facility] Triglycerides 70 0 - 150 mg/dL LAB CHEMISTRY METHOD 11/01/2024 2:37 PM [facility] HDL 43 >=40 mg/dL LAB CHEMISTRY METHOD 11/01/2024 2:37 PM [facility] LDL Calculated 80 0 - 100 mg/dL LAB CHEMISTRY METHOD 11/01/2024 2:37 PM [facility] VLDL Cholesterol Rogelio 14 mg/dL LAB CHEMISTRY METHOD 11/01/2024 2:37 PM [facility] Non HDL Chol. (LDL+VLDL) 94 <145 mg/dL LAB CHEMISTRY METHOD 11/01/2024 2:37 PM [facility] Chol/HDL Ratio 3.2 0.0 - 4.4 LAB CHEMISTRY METHOD 11/01/2024 2:37 PM [facility] Blood Venous blood specimen / Unknown Venipuncture / Unknown 11/01/2024 10:36 AM EST 11/01/2024 10:36 AM EST Sarai Bailey MD LAB BLOOD ORDERABLES Final Resul t [facility] [address] [place] [address], * Falls Risk Assessment (10/25/2023) Pathologist [facility] Falls Risk Assessment Abstracted Historical Provider HEALTH MAINTENANCE Final Result * Depression Screening (10/25/2023) Pathologist [facility] Depression Screening Abstracted Historical Provider HEALTH MAINTENANCE Final Result * Colonoscopy (12/30/2017) Pathologist [facility] Colonoscopy No interpretatio n, abstraced Anatomical Region Laterality Modality Other Historical Provider HEALTH MAINTENANCE Final Result * Hepatitis C Screening (03/11/2013) Pathologist [facility] Hepatitis C Screening Abstracted Historical Provider HEALTH MAINTENANCE Final Result from Last 3 Months or Most Recently Relevant to Health Maintenance Insurance MEDICARE [facility] Care Teams Golf Professional Relationship Specialty Start Date End Date Sarai Bailey MD [address] [place] [address] PCP - General 03/23/1998
== END 2025-07-19 10:00 | disposition home or self-care (01) ==
LOC: HO.HUSH 09:25
PROVIDERS: PCP Internal Medicine; Visit Provider Urology
DX: N43.40 Spermatocele of epididymis, unspecified (principal); R97.20 Elevated prostate specific antigen [PSA]; Z13.9 Encounter for screening, unspecified
CPT/HCPCS: 99214

== ENCOUNTER → 2025-07-19 09:24 | Outpatient (BNVA) | payer MEDICARE, SELFPAY | PROVIDERS: PCP Internal Medicine; Visit Provider Urology | DX: N43.40 Spermatocele of epididymis, unspecified (principal); R97.20 Elevated prostate specific antigen [PSA] | CPT/HCPCS: 51798; 81003; 99212 ==

== ENCOUNTER 2025-10-30 08:23 | Outpatient (REF) | payer MEDICARE, SELFPAY ==
--- OUTSIDE RECORDS SUMMARY | 2025-10-30 08:27 | XMS_ITS | Clinical Summary ---
Author Organization [facility] Address [address] [place] [address] Care Team Providers Care Support Services Coordinator Name Role Phone Sarai Bailey MD Primary Care Provider [phone] Allergies Active Allergy Reactions Criticality Noted Date [...] this topic Medical Devices Implanted Type Area Appointment Coordinator Device Identifier Shelf Expiration Date Model / Serial / Lot Cellulose Surgicel 14x2in Absorbable Hemostatic Agent - [id number] - [id number] Implanted:Qty: 1 on 08/17/2018 by Alhaji Arceo MD at [facility] and Med Hemostatic Agent N/A: Chest [employer] 11/28/2022 1951 / / [id number] Ring Attune 18in 27mm 2 Velour Adjustable Full Flexible - [id number] - [id number] Implanted:Qty: 1 on 08/17/2018 by Alhaji Arceo MD at [facility] and Med N/A: Heart [employer] 08/17/2021 AFR-27 / [id number] / Nail Oss 41cm Intramedullary Femur - [id number] - [id number] Implanted:Qty: 2 on 08/17/2018 by Alhaji Arceo MD at [facility] and Med N/A: Chest [employer] 01/27/2021 [id number] / / [id number] Advance Directives For more information, please contact: [phone] Latest Code Status on File Code Status Date Activated Date Inactivated Comments Full Code 08/17/2018 6:31 AM 08/21/2018 11:12 PM This code status was ascertained in the following way: discussion with patient. Care Teams Support Services Coordinator Relationship Specialty Start Date End Date Sarai Bailey MD PCP - General Internal Medicine 06/20/18
--- OUTSIDE RECORDS SUMMARY | 2025-10-30 08:27 | XMS_ITS | Clinical Summary ---
Author Organization [address] [place] [address] [place] [phone] Phone Care Team Providers Care Child Care Centre Manager Name Role Phone Sarai Bailey MD Primary Care Provider [phone] Allergies Active Allergy Reactions Criticality Noted Date [...] (NORVASC) 10 mg tablet Take 1 tablet by mouth once daily 90 tablet 08/29/2025 Active dutasteride (AVODART) 0.5 mg capsule Take 1 capsule (0.5 mg total) by mouth 1 (one) time each day. Active cholecalciferol (VITAMIN D-3) 10 mcg (400 unit) tablet Take 1 tablet (400 Units total) by mouth 1 (one) time each day. Active Active Problems Problem Noted Date Diagnosed Date Nonrheumatic mitral valve regurgitation 10/16/20 25 Overview (10/16/2025): Mitral regurgitation status post mitral valve repair by Dr. Arceo at [facility] in 2018. Follow-up echocardiogram showed no stenosis or regurgitation. Left atrial appendage ligation and maze procedure carried out. Assessment & Plan (10/16/2025 11:32 AM EST): Valve function appears excellent. Will continue with echocardiogram but can wait a year given he has done so well clinically. Cough 05/31/2023 Overview (10/03/2024): Pt reports chornic intermittent cough with occasional sputum production. Obstructive sleep apnea 09/20/2020 Overview (10/03/2024): [facility] Home Sleep Apnea Test: Date 09/12/2020; [...] (10/03/2024): Incidental finding at colonoscopy 12/30/2017. A-fib (CMS/HCC V24, CMS/HCC V28) 12/03/2017 Overview (10/03/2024): Status post maze [...] left atrial appendage ligation. Assessment & Plan (10/16/2025 11:31 AM EST): No recurrent atrial fibrillation. Low risk given he has a left atrial appendage ligation. Will monitor with physical exam and ECGs annually. Assessment & Plan (11/07/2024 5:22 PM EST): [...] diet and regular exercise. Assessment & Plan (10/16/2025 11:31 AM EST): Well-controlled on current medications which include spironolactone, amlodipine and losartan. He is maintaining a stable weight and remains active physically. Will continue to see his nib inspector. Assessment & Plan (11/07/2024 5:22 PM EST): Encounters Date Type Department Care Team Description 10/16/2025 11:30 AM EST Office Visit [facility] Cardiology [facility] [place] [facility] [address] [place] [address] Juan F Duenas MD Paroxysmal atrial fibrillation (CMS/HCC V24, CMS/HCC V28) (Primary Dx); Essential hypertension, benign; Nonrheumatic mitral valve regurgitation 10/16/2025 Telephone [facility] Cardiology [facility] [place] [facility] [address] [place] [address] Juan F Duenas MD 08/24/2025 Telephone [facility] Cardiology [facility] [place] [facility] [address] [place] [address] Juan F Duenas MD from Last 3 Months Immunizations Immunization Administration Dates Next Due H1N1 Inj Preservative [...] SQUAMOUS CELL CA; COMMENT: SCC 02/09 left spiritism (in situ) OTHER SURGICAL HISTORY PROCEDURE: OH VALVULOPLASTY MITRAL VALVE W/CARDIAC BYPASS EXCISION BENIGN SKIN LESION TRUNK / ARM / LEG PROCEDURE: OH EXCISION TUMOR SOFT TISSUE BACK/FLANK SUBQ <3CM OTHER SURGICAL HISTORY PROCEDURE: OH ARTHROTOMY W/MENISCUS REPAIR KNEE ROTATOR CUFF REPAIR [...] carcinoma of skin; COMMENT: 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 For example, child care assistant or elderly care for an older adult? [...] Date Recorded What is your living situation? Unrecognized valu e 04/17/2025 Sex and Gender Information Value Date Recorded Sex Assigned at Not on file Legal Sex Male 11:27 PM EST Gender Identity Not on file Sexual Orientation Not on file Obstetrics History Last Filed Vital Signs Vital Sign Reading Time Taken Comments Blood Pressure 122/64 10/16/2025 10:59 AM EST Pulse 57 10/16/2025 10:59 AM EST Temperature 36.1 C (97 F) 05/15/2025 10:06 AM EDT Respiratory Rate 17 05/15/2025 10:06 AM EDT Oxygen Saturation 99% 10/16/2025 10:59 AM EST Inhaled Oxygen Concentration - - Weight 68.9 kg (152 lb) 10/16/2025 10:59 AM EST Height 162.6 cm (5' 4 ) 10/16/2025 10:59 AM EST Body Mass Index 26.09 10/16/2025 10:59 AM EST Plan of Treatment Upcoming Encounters Date Type Department Care Team (Late st Contact Info) Description 11/12/2025 11:15 AM EST Office Visit [facility] [address] [place] [address] Sarai Bailey MD [address] [place] [address] 05/15/2026 9:45 AM EDT Office Visit Pulmonology [address] [place] [phone] Galileo Urrutia MD [address] [place] [address] Health Maintenance Due Date Last Done Comments Zoster Vaccines (1 of 2) 05/04/2013 03/09/2013 RSV Immunization Adult Patients (1 - 1-dose 75+ series) 2024 COVID-19 Vaccine (4 - 2024- season) 2025 09/25/2021, 03/27/2021, 03/06/2021 Influenza Vaccine (#1) 2025 , 10/25/2023, 09/25/2022, [...] Procedure Name Priority Date/Time Associated Diagnosis Comments ECG 12-LEAD Routine 10/16/2025 11:12 AM EST Paroxysmal atrial fibrillation (CMS/HCC V24, CMS/HCC V28) BASIC METABOLIC PANEL Routine 01/31/2025 2:15 PM [...] Recently Relevant to Health Maintenance Results * ECG 12 lead (10/16/2025 11:12 AM EST) Ventricular Rate ECG 57 BPM GEMUSE Atrial Rate 55 BPM GEMUSE QRS Duration 100 ms GEMUSE Q-T Interval 426 ms GEMUSE QTc 414 ms GEMUSE R Dewart -51 degrees GEMUSE T Dewart 55 degrees GEMUSE ECG Interpretation Atrial fibrillation with slow ventricular response with premature ventricular or aberrantly conducted complexes and with ventricular escape complexes Left anterior fascicular block Septal infarct , age undetermined Abnormal ECG When compared with ECG of 12-MAY-2018 13:53, Atrial fibrillation has replaced Ectopic atrial rhythm Left anterior fascicular block is now Present Septal infarct is now Present GEMUSE 10/16/2025 11:0 3 AM EST Narrative GEMUSE - 10/16/2025 11:12 AM EST Sinus bradycardia 57 bpm. Frequent PVCs with a left bundle branch block morphology. us Juan F Duenas MD ECG ORDERABLES Edited Result - Final GEMUSE * (ABNORMAL) Basic metabolic panel (01/31/2025 2:15 PM EST) Sodium 133 133 - 145 mmol/L LAB CHEMISTRY METHOD 01/31/2025 6:27 PM [facility] Potassium 4.4 3.5 - 5.5 mmol/L LAB CHEMISTRY METHOD 01/31/2025 6:27 PM [facility] Comment:Hemolysis present Chloride 102 96 - 110 mmol/L LAB CHEMISTRY METHOD 01/31/2025 6:27 PM [facility] CO2 19(L) 21 - 32 mmol/L LAB CHEMISTRY METHOD 01/31/2025 6:27 PM [facility] Anion Gap 12(H) 3 - 11 LAB CHEMISTRY METHOD 01/31/2025 6:27 PM [facility] Glucose 88 70 - 100 mg/dL LAB CHEMISTRY METHOD 01/31/2025 6:27 PM [facility] BUN 23 5 - 25 mg/dL LAB CHEMISTRY METHOD 01/31/2025 6:27 PM [facility] Creatinine 1.33(H) 0.70 - 1.30 mg/dL LAB CHEMISTRY METHOD 01/31/2025 6:27 PM [facility] eGFR 56(L) >=60 mL/min/1. 73m2 LAB CHEMISTRY METHOD 01/31/2025 6:27 PM [facility] Comment:Calculation based on the Chronic Kidney Disease Epidemiology Collaboration (CKD-EPI) equation refit without adjustment for race. BUN/Creatinine Ratio 17.3 LAB CHEMISTRY METHOD 01/31/2025 6:27 PM [facility] Calcium 9.2 8.5 - 10.5 mg/dL LAB CHEMISTRY METHOD 01/31/2025 6:27 PM [facility] Blood Venous blood specimen / Unknown Venipuncture / Unknown 01/31/2025 2:15 PM EST 01/31/2025 2:15 PM EST Juancho Prather MD LAB BLOOD ORDERABLES Final Res ult Performing Organization Address [facility]/ZIP Co de Phone Number [facility] [address] [place] [address], * Lipid panel with reflex to direct LDL (11/01/2024 10:36 AM EST) Cholesterol 137 0 - 200 mg/dL LAB CHEMISTRY METHOD 11/01/2024 2:37 PM EST [facility] Triglycerides 70 0 - 150 mg/dL LAB CHEMISTRY METHOD 11/01/2024 2:37 PM EST [facility] HDL 43 >=40 mg/dL LAB CHEMISTRY METHOD 11/01/2024 2:37 PM EST [facility] LDL Calculated 80 0 - 100 mg/dL LAB CHEMISTRY METHOD 11/01/2024 2:37 PM EST [facility] VLDL Cholesterol Rogelio 14 mg/dL LAB CHEMISTRY METHOD 11/01/2024 2:37 PM EST [facility] Non HDL Chol. (LDL+VLDL) 94 <145 mg/dL LAB CHEMISTRY METHOD 11/01/2024 2:37 PM EST [facility] Chol/HDL Ratio 3.2 0.0 - 4.4 LAB CHEMISTRY METHOD 11/01/2024 2:37 PM [facility] Blood Venous blood specimen / Unknown Venipuncture / Unknown 11/01/2024 10:36 AM EST 11/01/2024 10:36 AM EST Sarai Bailey MD LAB BLOOD ORDERABLES Final Resul t Performing Organization Address [facility]/ZIP Co de Phone Number [facility] [address] [place] [address], * Hm Falls Risk Assessment (10/25/2023) Falls Risk Assessment Abstracted Historical Provider HEALTH MAINTENANCE Final Result * Depression Screening (10/25/2023) Depression Screening Abstracted [facility] Provider HEALTH MAINTENANCE Final Result * Colonoscopy (12/30/2017) Colonoscopy No interpretatio n, abstraced Anatomical Region Laterality Modality Other Historical Provider HEALTH MAINTENANCE Final Result * Hepatitis C Screening (03/11/2013) Pathologist [facility] Hepatitis C Screening Abstracted [facility] Provider HEALTH MAINTENANCE Final Result from Last 3 Months or Most Recently Relevant to Health Maintenance Insurance MEDICARE [facility] Care Teams Child Care Centre Manager Relationship Specialty Start Date End Date Sarai Bailey MD [address] [place] [phone] (work) [facility] - General 03/23/1998
[2025-10-30 10:02] LABS: PSA,Total (Free>4and<10) 1.90 ng/mL (0.00-4.00)
== END 2025-10-30 08:24 | disposition home or self-care (01) ==
LOC: HO.LAB 08:23
PROVIDERS: Visit Provider Urology
DX: R97.20 Elevated prostate specific antigen [PSA] (principal); Z12.5 Encounter for screening for malignant neoplasm of prostate
CPT/HCPCS: 36415; 84153

== ENCOUNTER 2025-11-16 09:05 | Outpatient (AMB) | payer MEDICARE, SELFPAY ==
--- OUTSIDE RECORDS SUMMARY | 2025-11-12 11:15 | XMS_ITS | Encounter Summary ---
Author Organization [facility] Address [address] [place] [address] Care Team Providers Care Senior Peoplesoft Developer Name Role Phone Sarai Bailey MD Primary Care Provider [phone] Reason for Visit * Reason Comments Annual Exam AWV Encounter Details Date Type Department Care Team (Late st Contact Info) Description 11/12/2025 11:15 AM EST Office Visit Adult Medicine [address] [phone] Sarai Bailey MD [address] [place] [id number] Acquired torsion dystonia (Primary Dx); Atrial fibrillation, unspecified type (CMS/HCC V24, CMS/HCC V28); Essential hypertension, benign; Obstructive sleep apnea; Nonrheumatic mitral valve regurgitation; Stage 3 chronic kidney disease, unspecified whether stage 3a or 3b CKD (CMS/HCC V24, CMS/HCC V28); Patient has healthcare proxy; Right knee pain, unspecified chronicity; Need for prophylactic vaccination and inoculation against influenza Social History Tobacco Use Types Packs/Day Years Used Date Smoking Tobacco: Never Passive Smoke Exposure: Never Smokeless Tobacco: Never Tobacco Cessation:Counseling Given: Not Answered Alcohol Use Standard Drinks/Week Comments No 0 (1 standard drink = 0.6 oz pur e alcohol) Housing Instability Answer Date Recorde d Are you worried that in the next 2 months you may not have stable housing? No 11/08/2025 Food Access & Nutrition Answer Date Rec orded Do you have access to a vari ety of food including fruits and vegetables? Yes 11/08/2025 Access to Healthcare Answer Date Record ed Within the last 3 months, ho w many times did you visit the emergency department for your medical care? 0 11/08/2025 Health Literacy Answer Date Recorded How often do you need to hav e someone help you when you read instructions, pamphlets, or other written material from your doctor or pharmacy? Never 11/08/2025 Caregiver: How often do you need to have someone help you when you read instructions, pamphlets, or other written material from your doctor or pharmacy? Not on file 11/08/2025 Financial Risk Answer Date Recorded How hard is it for you to pa y for the very basics like food, housing, medical care, and air conditioning / heating? Not asked 11/08/2025 Transportation Answer Date Recorded Has the lack of transportati on kept you from meetings, work, or from getting things needed for daily living? No Has the lack of transportati on kept you from medical appointments or from getting medications? No 11/08/2025 Social Isolation Answer Date Recorded How often do you feel lonely or isolated from th ose around you? Never 11/08/2025 Food Risk Answer Date Recorded Within the past 12 months we worried whether our food would run out before we got money to buy more. Never true 11/08/2025 Within the past 12 months th e food we bought just didn't last and we didn't have money to get more. Never true 11/08/2025 Dependent Care Answer Date Recorded Do you need help finding or paying for care for your loved ones. For example, child care lead teacher or elderly care for an older adult? Unable to respond 11/08/2025 Education Answer Date Recorded Do you think completing more education or training, like finishing a GED, going to college, or learning a trade, would be helpful for you? Unable to respond 11/08/2025 Employment and Income Answer Date Recor ded During the last four weeks, have you been actively looking for work? Unable to respond 11/08/2025 Living Situation Answer Date Recorded What is your living situation? Unrecognized valu e 11/08/2025 Sex and Gender Information Value Date Recorded Sex Assigned at Not on file Legal Sex Male 11:27 PM EST Gender Identity Not on file Sexual Orientation Not on file documented as of this encounter Last Filed Vital Signs Vital Sign Reading Time Taken Comments Blood Pressure 138/60 11/12/2025 11:41 AM EST Pulse 60 11/12/2025 11:41 AM EST Temperature 36.6 C (97.8 F) 11/12/2025 11:41 AM EST Respiratory Rate 12 11/12/2025 11:41 AM EST Oxygen Saturation - - Inhaled Oxygen Concentration - - Weight 68.9 kg (152 lb) 11/12/2025 11:41 AM EST Height 162.6 cm (5' 4 ) 11/12/2025 11:41 AM EST Body Mass Index 26.09 11/12/2025 11:41 AM EST documented in this encounter Progress Notes * Sarai Bailey MD - 11/12/2025 11:15 AM ESTAssociated Problem(s): Acquired torsion dystonia * Sarai Bailey MD - 11/12/2025 11:15 AM ESTAssociated Problem(s): A-fib (CMS/HCC V24, CMS/HCC V28) * Sarai Bailey MD - 11/12/2025 11:15 AM ESTAssociated Problem(s): Essential hypertension, benign * Sarai Bailey MD - 11/12/2025 11:15 AM ESTAssociated Problem(s): Obstructive sleep apnea * Sarai Bailey MD - 11/12/2025 11:15 AM ESTAssociated Problem(s): Nonrheumatic mitral valve regurgitation * Sarai Bailey MD - 11/12/2025 11:15 AM EST Images from the original note were not included. Medicare Annual Wellness Visit Note Patient Name: Chandler Pedersen Date of : 1950 Race: White Ethnicity: Not Hispan/Lat Date of Service: 11/12/2025 Patient Care Team: Sarai Bailey MD as PCP - General Juan F Duenas MD as Polytechnic Registrar (Electrophysiology) Kelley Queen NP as Advanced Practice Registered Nurse (Electrophysiology) Dr. Rosario, urology Neurology service Dr. Gates, nephrology Liam is a 75 y.o. male presenting for Annual Exam (AWV ) HPI See HPI below Problem List[1] Allergies[2] Current Outpatient Medications Medication Instructions amLODIPine (NORVASC) 10 mg, oral, Daily cholecalciferol (VITAMIN D-3) 400 Units, Daily clonazePAM (KLONOPIN) 0.5 mg, Daily dutasteride (AVODART) 0.5 mg, Daily losartan (COZAAR) 100 mg, oral, Daily spironolactone (ALDACTONE) 25 mg, oral, Daily tamsulosin (FLOMAX) 0.4 mg, Daily trihexyphenidyL (ARTANE) 2 mg, 3 times daily with meals Medical History[3] Surgical History[4] Social History[5] Family History[6] Immunization History Administered Date(s) Administered H1N1 Inj Preservative Free 12/06/2009 Influenza Quadravalent, MDCK, 0.5ml, with preservative (Flucelvax) 6mo and older 10/01/2017 Influenza trivalent, 0.5mL (Fluad) 65yo and older 09/22/2007, 12/06/2009, 10/09/2010, 08/30/2011, 09/21/2012, 09/01/2013, 08/29/2014, 09/11/2015, 08/30/2016, 08/11/2018, 10/01/2019, 09/21/2020, 09/03/2021, 09/25/2022, 10/25/2023, 11/08/2024 Influenza, Unspecified 08/29/2014, 09/21/2020, 09/03/2021 TradeYa SARS-CoV-2 COVID-19, mRNA, LNP-S, preservative free 03/06/2021, 03/27/2021, 09/25/2021 Pneumococcal conjugate 13 valent (Prevnar 13, PCV13) 2mo and older 09/11/2015 Pneumococcal polysaccharide 23 valent (Pneumovax 23) 2yo and older 10/19/2016 Td Tetanus diptheria (Tdvax) 7yo and older 06/11/2003 Td, Unspecified 06/11/2003 Tdap Tetanus diptheria acellular pertussis (Boostrix; Adacel) 7yo and older 01/19/2012, 10/25/2023 Zoster Live 03/09/2013 Health Maintenance Topic Date Due Drug Screen Never done Non-Opioid Controlled Substance Agreement Never done Zoster Vaccines (1 of 2) 05/04/2013 RSV Immunization Adult Patients (1 - 1-dose 75+ series) Never done Influenza Vaccine (1) 07/30/2025 COVID-19 Vaccine (4 - 2024- season) 2025 Medicare Annual Wellness Visit 11/07/2025 Hypertension/CHF/CAD Annual BMP Blood Test 11/05/2026 Social Influencers of Health Screening 11/08/2026 Falls Risk Assessment 11/12/2026 Cholesterol Screening (Lipid Panel) 11/01/2029 DTaP,Tdap,and Td Vaccines (5 - Td or Tdap) 10/25/2033 Pneumococcal Vaccine: 50+ Years Completed Hepatitis C Screening Completed Depression Screening Completed HIB Vaccines Aged Out Hepatitis B Vaccines Aged Out IPV Vaccines Aged Out Hepatitis A Vaccines Aged Out MMR Vaccines Aged Out Varicella Vaccines Aged Out Meningococcal ACWY Vaccine Aged Out Meningococcal B Vaccine Aged Out HPV Vaccines Aged Out RSV Immunization Patients Under 20 months Aged Out Colorectal Cancer Screening: Colonoscopy Discontinued Cognitive Function Assessment: Cognitive screening performed. Mini COG Clock Drawing Test: Normal Word Recall: Three Words Mini Cog Score: 5 Mini Cog Results: Negative screen for dementia Fall Screening: Fallen in the past year?: No Feels unsteady when standing or walking?: No Worries about falling?: No Depression Screening Over the last 2 weeks, how often have you been bothered by little interest or pleasure in doing things?: (Patient-Rptd) (P) Not at all Over the last 2 weeks, how often have you been bothered by feeling down, depressed, or hopeless?: (Patient-Rptd) (P) Not at all Depression Risk: (Patient-Rptd) (P) 0 PHQ9 Full Set of Questions Over the last 2 weeks, how often have you been bothered by little interest or pleasure in doing things?: (Patient-Rptd) (P) Not at all Over the last 2 weeks, how often have you been bothered by feeling down, depressed, or hopeless?: (Patient-Rptd) (P) Not at all PHQ -9 Depression Risk Score: (Patient-Rptd) (P) 0 Screening Result: (Patient-Rptd) (P) Negative Risk Category: (Patient-Rptd) (P) Negative Activity of Daily Living (ADLs): No data recorded Instrumental Activities of Daily Living (IADLs): No data recorded Functional Ability and Level of Safety Review Health Status: No data recorded Physical Activity: No data recorded Nutritional Assessment: No data recorded Safety: Safety: Does the patient live alone?: (Patient-Rptd) (P) Yes Does your home have throw rugs, poor lighting, or a slippery bathtub/shower?: (Patient-Rptd) (P) No Does your home have functioning smoke detection?: (Patient-Rptd) (P) Yes Do you use any assistive devices?: (Patient-Rptd) (P) No Do you always fasten your seatbelt?: (Patient-Rptd) (P) Yes Psychosocial Risks: Has stress been negatively affecting your life?: (Patient-Rptd) (P) No Has anger been negatively affecting your life?: (Patient-Rptd) (P) No Have you been bothered by unusual fatigue?: (Patient-Rptd) (P) No Social Influencers of Health Within the past 12 months we worried whether our food would run out before we got money to buy more.: (Patient-Rptd) Never true Within the past 12 months the food we bought just didn't last and we didn't have money to get more.: (Patient-Rptd) Never true How hard is it for you to pay for the very basics like food, housing, medical care, and air conditioning / heating?: (Patient-Rptd) Not asked Are you worried that in the next 2 months you may not have stable housing?: (Patient-Rptd) No Do you have access to a variety of food including fruits and vegetables?: (Patient-Rptd) Yes Within the last 3 months, how many times did you visit the emergency department for your medical care?: (Patient-Rptd) 0 Has the lack of transportation kept you from meetings, work, or from getting things needed for daily living?: (Patient-Rptd) No Has the lack of transportation kept you from medical appointments or from getting medications?: (Patient-Rptd) No How often do you feel lonely or isolated from those around you?: (Patient-Rptd) Never How often do you need to have someone help you when you read instructions, pamphlets, or other written material from your doctor or pharmacy?: (Patient- Rptd) Never Review of Systems See below Objective BP 138/60 Pulse 60 Temp 36.6 ??C (97.8 ??F) Resp 12 Ht 1.626 m (64 ) Wt 68.9 kg (152 lb) BMI 26.09 kg/m?? Hearing: No data recorded Vision Screening: Required for Medicare Initial Preventative Physical Exam (IPPE) No data recorded Physical Exam Patient presented today for an Subsequent Medicare Wellness Visit with management of chronic condition(s). Assessment & Plan Acquired torsion dystonia Atrial fibrillation, unspecified type ([facility] V24, [facility] V28) Essential hypertension, benign Obstructive sleep apnea Nonrheumatic mitral valve regurgitation Stage 3 chronic kidney disease, unspecified whether stage 3a or 3b CKD ([facility] V24, [facility] V28) Patient has healthcare proxy Right knee pain, unspecified chronicity Need for prophylactic vaccination and inoculation against influenza Orders: Influenza trivalent, 0.5mL (Fluad) 65yo and older Risk Assessments: Body mass index is 26.09 kg/m??. The BMI is in the acceptable range. Fall Risk: Have you fallen in the past year? no. Are you worried about falling? no. Discussed: removal of throw rugs in home, adequate lighting/night lights, pausing with transitional movements, paying attention to surroundings, clear pathways/stairs, not rushing through tasks, safe mobility over latha transitions, and discussed under context patient's right knee pain PHQ -9 Depression Risk Score: (Patient-Rptd) (P) 0 Depression plan: Screen was negative Pain Medication: Patient does not take any opioid medications Advance Care Planning Advance care planning is the process of planning for future medical care in case you are unable to make your own medical decisions. It involves choosing a health care international account representative and reviewing future health care directives. The patient Advance Directives: does have advance directives and/or surrogate decision maker.. Advance directives reviewed and/or discussed: Patient's son Tomás, whom I met before he is very involved in patient's care Health Maintenance Due Topic Date Due Drug Screen Never done Non-Opioid Controlled Substance Agreement Never done Zoster Vaccines (1 of 2) 05/04/2013 RSV Immunization Adult Patients (1 - 1-dose 75+ series) Never done Influenza Vaccine (1) 07/30/2025 COVID-19 Vaccine (4 - 2024- season) 2025 Medicare Annual Wellness Visit 11/07/2025 The following vaccine(s) were recommended: Vaccines Recommended: Influenza (Flu Vaccine) Patient Instructions (the written plan) as discussed and documented in our visit today. Sarai Bailey MD ADULT MEDICINE [address] [address] Dept: [phone] Dept CHIEF COMPLAINT: Annual Exam (AWV ) IDENTIFIER: Chandler Pedersen is a 75 y.o. old male. HPI: Although main purpose for this visit is for AWV, patient also presents for evaluation of multiple medical issues. He tells me physically he feels quite well, he remain active, although he is not happy regarding the treatment by orthopedic doctor for the right knee pain, pain is gradually improving he is urinating without any difficulty. He continues to follow with cardiology, now with local tuyere fitter Dr. Duenas. I reviewed most recent EKG and cardiac evaluation. 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 He uses clonazepam quite infrequently. He has questions regarding his BPH. He was previously given finasteride, patient feels weird withthis medication. He is happy that the recent change of medication not only helped him with his symptoms, it also reduced his PSA further to the current 1.9. Patient has questions regarding what is creatinine . He follows with kidney specialist. He is taking medication as instructed and I reviewed patient medication list. ROS: GENERAL: Negative for malaise, significant weight loss and fever RESPIRATORY: No cough, wheezing or shortness of breath CARDIOVASCULAR: Negative for chest pain, leg swelling and palpitations GI: Negative for abdominal discomfort, changes in bowel habits, blood in stool or black stools ENDOCRINE: Negative for cold or heat intolerance, polyuria, polydipsia and goiter NEURO: No persistent headache, fainting, seizures, strokes, TIAs, weakness, numbness or tingling, See HPI PAST MEDICAL HISTORY: Patient Active Problem List Diagnosis Date Noted Nonrheumatic mitral valve regurgitation 10/16/2025 Cough 05/31/2023 Obstructive sleep apnea 09/20/2020 Urinary retention 01/30/2018 Angiodysplasia of colon without bleeding 01/06/2018 A-fib ([facility] V24, [facility] V28) 12/03/2017 Benign prostatic hyperplasia with lower urinary tract symptoms 10/20/2017 Tear of meniscus of knee 07/28/2013 Ventral hernia 01/19/2012 Diverticulitis of colon without hemorrhage 08/31/2007 Condition not found 12/16/2006 Acquired torsion dystonia 12/28/2005 Essential hypertension, benign 12/28/2005 SOCIAL HISTORY: Social History Tobacco Use Smoking status: Never Passive exposure: Never Smokeless tobacco: Never Substance Use Topics Alcohol use: No FAMILY HISTORY: Family Status Relation Name Status Mother (Not Specified) Father (Not Specified) Sister (Not Specified) No partnership data on file Family History[7] ACTIVE MEDICATIONS: Medications Taking[8] ALLERGIES: Lisinopril PHYSICAL EXAM: Blood pressure 138/60, pulse 60, temperature 36.6 ??C (97.8 ??F), resp. rate 12, height 1.626 m (64 ), weight 68.9 kg (152 lb). Body mass index is 26.09 kg/m??. BMI is greater than 25.0 (above the normal range) - see Plan APPEARANCE: Alert and in no acute distress, well hydrated, well groomed, cervical dystonia NECK: No focal tenderness no mass palpable HEART: Normal S1-S2 LUNG: clear to auscultation bilaterally ABDOMEN: Bowel sounds normoactive, no bruits and soft, non-tender, without organomegaly or palpablemasses EXTREMITIES: Extremities warm and well perfused without clubbing, cyanosis, or edema NEURO: Awake, alert and oriented x 3, reflexes symmetrical, and no focal tremor LABS: Lab Results Component Value Date GLUCOSE 85 11/05/2025 CALCIUM 9.4 11/05/2025 NA 134 11/05/2025 K 3.9 11/05/2025 CO2 26 11/05/2025 CL 100 11/05/2025 BUN 35 (H) 11/05/2025 CREATININE 1.49 (H) 11/05/2025 Lab Results Component Value Date CHOL 137 11/01/2024 TRIG 70 11/01/2024 HDL 43 11/01/2024 LDLCALC 80 11/01/2024 VLDL 14 11/01/2024 NONHDLC 94 11/01/2024 CHOLHDL 3.2 11/01/2024 Wt Readings from Last 5 Encounters: 11/12/25 68.9 kg (152 lb) 10/16/25 68.9 kg (152 lb) 06/21/25 68.9 kg (152 lb) 05/15/25 68.3 kg (150 lb 9.6 oz) 04/19/25 68.9 kg (152 lb) BP Readings from Last 5 Encounters: 11/12/25 138/60 10/16/25 122/64 06/21/25 114/59 05/15/25 124/56 04/19/25 106/56 IMPRESSION: No diagnosis found. PLAN: He tells me physically he feels quite well, he remain active, although he is not happy regarding the treatment by orthopedic doctor for the right knee pain, pain is gradually improving he is urinating without any difficulty. He continues to follow with cardiology, now with local tuyere fitter Dr. Duenas. I reviewed most recent EKG and cardiac evaluation. 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 He uses clonazepam quite infrequently. He has questions regarding his BPH. He was previously given finasteride, patient feels weird withthis medication. He is happy that the recent change of medication not only helped him with his symptoms, it also reduced his PSA further to the current 1.9. Patient has questions regarding what is creatinine . He follows with kidney specialist. He is taking medication as instructed and I reviewed patient medication list. 1 patient's cardiac status stable, I will leave final decision to cardiology regarding potential echocardiogram. Encouraged active lifestyle and patient should promptly report any new symptoms. I try my best answer patient's questions to why cardiology would order EKG each time 2 discussed current recommendation for aggressive blood pressure control, discussed patient's comorbidity. We decided against medication change, will continue to monitor renal function. I answered the patient many questions. Patient also follows with nephrology 3 BPH, patient reports a recent PSA 1.9 down from high fours. We will continue Flomax. Patient follows with urology Dr. Rosario. 4 patient is ambulating freely, not too long ago patient still actively skiing. I would like to avoid any nonsteroidal with patient's tenuous renal function. Patient denied any significant pain at this time 5 patient continue to follow with pulmonology for his sleep apnea. I updated patient flu vaccination today. No orders of the defined types were placed in this encounter. ADDITIONAL ORDERS: None Sarai Bailey MD on 11/12/2025 at 11:49 AM EST [1] Patient Active Problem List Diagnosis Condition not found A-fib (CMS/HCC V24, CMS/HCC V28) Acquired torsion dystonia Angiodysplasia of colon without bleeding Benign prostatic hyperplasia with lower urinary tract symptoms Cough Diverticulitis of colon without hemorrhage Essential hypertension, benign Obstructive sleep apnea Tear of meniscus of knee Urinary retention Ventral hernia Nonrheumatic mitral valve regurgitation [2] Allergies Allergen Reactions Lisinopril 20 mg dosage Cough [3] Past Medical History: Diagnosis Date Acquired torsion dystonia 12/28/2005 DX:Acquired torsion dystonia Angiodysplasia of colon without bleeding 01/06/2018 DX:Angiodysplasia of colon without bleeding; COMMENT: Incidental finding at colonoscopy 12/30/2017. Benign prostatic hyperplasia with lower urinary tract symptoms 10/20/2017 DX:Benign prostatic hyperplasia with lower urinary tract symptoms; COMMENT: Follows with urology Diverticulosis of colon (without mention of hemorrhage) 08/31/2007 DX:Diverticulosis of colon (without mention of hemorrhage); COMMENT: Incidental finding at colonoscopy 08/31/2007. History of squamous cell carcinoma of skin DX:History of squamous cell carcinoma of skin; COMMENT: SCC 02/09 left caodaism (in situ) Lipoma of other skin and subcutaneous tissue 12/16/2006 DX:Lipoma of other skin and subcutaneous tissue Meniscus tear 07/28/2013 DX:Meniscus tear; COMMENT: S/p repair by Dr. theresa Doctor 05/2013 Mitral regurgitation 04/19/2013 DX:Mitral regurgitation Special screening for malignant neoplasms, colon 08/31/2007 DX:Special screening for malignant neoplasms, colon; COMMENT: Negative colonoscopy 08/31/2007, no colon cancer screening needed for 10 years. Urinary retention 01/30/2018 DX:Urinary retention; COMMENT: Started during shoulder surgery, bladder ultrasound favorable. Started Flomax, follows with urology, Dr. Rosario. Ventral hernia, unspecified, without mention of obstruction or gangrene 01/19/2012 DX:Ventral hernia, unspecified, without mention of obstruction or gangrene [4] Past Surgical History: Procedure Laterality Date COLONOSCOPY 08/31/2007 PROCEDURE: HISTORICAL COLONOSCOPY; COMMENT: negative COLONOSCOPY 12/30/2017 PROCEDURE: HISTORICAL COLONOSCOPY; COMMENT: Muslu@[facility]; no polyps; 3 small angiodysplasias; diverticulosis. EXCISION BENIGN SKIN LESION TRUNK / ARM / LEG PROCEDURE: IA EXCISION TUMOR SOFT TISSUE BACK/FLANK SUBQ <3CM OTHER SURGICAL HISTORY PROCEDURE: HISTORICAL SQUAMOUS CELL CA; COMMENT: SCC 02/09 left caodaism (in situ) OTHER SURGICAL HISTORY PROCEDURE: IA VALVULOPLASTY MITRAL VALVE W/CARDIAC BYPASS OTHER SURGICAL HISTORY PROCEDURE: IA ARTHROTOMY W/MENISCUS REPAIR KNEE ROTATOR CUFF REPAIR Right PROCEDURE: HISTORICAL ROTATOR CUFF REPAIR [5] Social History Tobacco Use Smoking status: Never Passive exposure: Never Smokeless tobacco: Never Vaping Use Vaping status: Never Used Substance Use Topics Alcohol use: No Drug use: Yes Types: Marijuana/Cannabis [6] Family History Problem Relation Name Age of Onset Depression Mother ? depression, lived to age 92 Diabetes Mother Other (Other: afib) Mother Heart failure Father 1978 Prostate cancer Father pt really not sure Other (Other: heart disease, ?CHF, no real [place]) Father Lung cancer Sister Brain cancer Sister Bladder Cancer Sister [7] Family History Problem Relation Name Age of Onset Depression Mother ? depression, lived to age 92 Diabetes Mother Other (Other: afib) Mother Heart failure Father 1978 Prostate cancer Father pt really not sure Other (Other: heart disease, ?CHF, no real [place]) Father Lung cancer Sister Brain cancer Sister Bladder Cancer Sister [8] Outpatient Medications Marked as Taking for the 11/12/25 encounter (Office Visit) with Sarai Bailey MD Medication Sig Dispense Refill amLODIPine (NORVASC) 10 mg tablet Take 1 tablet by mouth once daily 90 tablet 0 cholecalciferol (VITAMIN D-3) 10 mcg (400 unit) tablet Take 1 tablet (400 Units total) by mouth 1 (one) time each day. clonazePAM (KlonoPIN) 0.5 mg tablet Take 1 tablet (0.5 mg total) by mouth 1 (one) time each day. 1/4 tab twice daily, full tab at night dutasteride (AVODART) 0.5 mg capsule Take 1 capsule (0.5 mg total) by mouth 1 (one) time each day. losartan (COZAAR) 100 mg tablet TAKE 1 TABLET EVERY DAY 90 tablet 3 spironolactone (ALDACTONE) 25 mg tablet TAKE 1 TABLET EVERY DAY 90 tablet 3 tamsulosin (FLOMAX) 0.4 mg 24 hr capsule Take 1 capsule (0.4 mg total) by mouth 1 (one) time each day. Take 30 mins after same meal every day. trihexyphenidyL (ARTANE) 2 mg tablet 1 tablet (2 mg total) 3 (three) times a day with meals. * Masoud Arteaga MA - 11/12/2025 11:15 AM EST INFLUENZA VACCINE The patient acknowledges that they will be receiving the Influenza (Flu) vaccine today: yes Flu vaccine formulation is: Fluad High Dose (for age 65 and over): Patient denies allergy to eggs, neomycin, kanamycin, hydrocortisone or previous flu vaccine. yes Immunization tab reviewed: Patient acknowledges they have NOT received a flu vaccine for the . yes Denies history of Guillain-Walland Syndrome (severe muscle weakness). yes Acknowledges reviewing the VIS Seasonal Flu (copy made available). yes Patient Denies moderate or severe illness or fever of >100 degrees F. yes Agrees to wait in the office/car for 20 minutes after receiving the influenza injection. yes No restriction for Influenza vaccine administered IM See Imm/Inj tab. 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 Atrial fibrillation, unspecified type ([facility] V24, [facility] V28) Essential hypertension, benign Obstructive sleep apnea Obstructive sleep apnea (adult) (pediatric) Nonrheumatic mitral valve regurgitation Stage 3 chronic kidney disease, unspecified whether stage 3a or 3b CKD ([facility] V24, [facility] V28) Patient has healthcare proxy Right knee pain, unspecified chronicity Need for prophylactic vaccination and inoculation against influenza documented in this encounter Orders Immunization/Injection Count Last Ordered Date First Ordered Date INFLUENZA TRIVALENT, 0.5ML ( FLUAD) 65YO AND OLDER 1 11/12/2025 documented in this encounter Additional Health Concerns Assessment Noted Time PHQ-9 Depression Total Score: 0 04/17/20 12:17 PM EDT A fall risk assessment has been complete d for the patient 11/05/2024 2:09 PM EST documented as of this encounter Care Teams Senior Peoplesoft Developer Relationship Specialty Start Date End Date Sarai Bailey MD [address] [place] [address] PCP - General 03/23/1998 documented as of this encounter
--- OUTSIDE RECORDS SUMMARY | 2025-11-16 09:32 | XMS_ITS | Clinical Summary ---
Author Organization [facility] Prior to 04/28/[address] [place] [address] Care Team Providers Care Surgical Rn Name Role Phone Sarai Bailey MD Primary Care Provider [phone] Allergies Active Allergy Reactions Criticality Noted Date [...] Tdap / Td (1 - Tdap) 1968 Shingrix-Zoster Vaccine (1 of 2) 1999 Fall [...] this topic Medical Devices Implanted Type Area Prime Broker Device Identifier Shelf Expiration Date Model / Serial / Lot Cellulose Surgicel 14x2in Absorbable Hemostatic Agent - [id number] - [id number] Implanted:Qty: 1 on 08/17/2018 by Alhaji Arceo [place] [facility] [place] Hemostatic Agent N/A: Chest [employer] 11/28/2022 1951 / / [id number] Ring Attune 18in 27mm 2 Velour Adjustable Full Flexible - [id number] - [id number] Implanted:Qty: 1 on 08/17/2018 by Alhaji Arceo MD [place] [facility] [place] and Med N/A: Heart [employer] 08/17/2021 AFR-27 / [id number] / Nail Oss 41cm Intramedullary Femur - [id number] - [id number] Implanted:Qty: 2 on 08/17/2018 by Alhaji Arceo MD at [facility] [place] and Med N/A: Chest [employer] 01/27/2021 [id number] / / [id number] Advance Directives For more information, please contact: [phone] Latest Code Status on File Code Status Date Activated Date Inactivated Comments Full Code 08/17/2018 6:31 AM 08/21/2018 11:12 PM This code status was ascertained in the following way: discussion with patient. Care Teams Surgical Rn Relationship Specialty Start Date End Date Sarai Bailey MD PCP - General Internal Medicine 06/20/18
--- OUTSIDE RECORDS SUMMARY | 2025-11-16 09:32 | XMS_ITS | Clinical Summary ---
Author Organization [address] [place] [address] [place] [phone] Phone Care Team Providers Care Union Steward Name Role Phone Sarai Bailey MD Primary Care Provider [phone] Allergies Active Allergy Reactions Criticality Noted Date [...] mitral valve repair by Dr. Arceo at [facility] in 2018. Follow-up echocardiogram showed no stenosis or regurgitation. Left atrial appendage ligation and maze procedure carried out. Assessment & Plan (11/12/2025 12:24 PM EST): Assessment & Plan (10/16/2025 11:32 AM EST): Valve function appears excellent. Will continue with echocardiogram but can wait a year given he has done so well clinically. Cough 05/31/2023 Overview (10/03/2024): Pt reports chornic intermittent cough with occasional sputum production. Obstructive sleep apnea 09/20/2020 Overview (10/03/2024): [facility] Home Sleep Apnea Test: Date 09/12/2020; Wt [...] hypoventilation by 2019 home sleep apnea test. Assessment & Plan (11/12/2025 12:24 PM EST): Urinary retention 01/30/2018 Overview (10/03/2024): Started during shoulder surgery, bladder ultrasound favorable. Started Flomax, follows with urology, Dr. Rosario. Angiodysplasia of colon without bleeding 018 Overview (10/03/2024): Incidental finding at colonoscopy 12/30/2017. A-fib 12/03/2017 Overview (10/03/2024): Status post maze procedure [...] left atrial appendage ligation. Assessment & Plan (11/12/2025 12:24 PM EST): Assessment & Plan (10/16/2025 11:31 AM EST): [...] (10/03/2024): Dr Torres, treated with botox injection Assessment & Plan (11/12/2025 12:24 PM EST): Essential hypertension, benign 12/28/2005 Overview (10/03/2024): Primary hypertension Last Assessment & Plan: Well-controlled on multiple medications and a low-sodium diet. Continue healthy diet and regular exercise. Assessment & Plan (11/12/2025 12:24 PM EST): Assessment & Plan (10/16/2025 11:31 AM EST): Well-controlled on current medications which include spironolactone, amlodipine and losartan. He is maintaining a stable weight and remains active physically. 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 Assessment & Plan (11/07/2024 5:22 PM EST): Encounters Date Type Department Care Team Description 11/12/2025 11:15 AM EST Office Visit Adult Medicine [address] [phone] Sarai Bailey MD Acquired torsion dystonia (Primary Dx); Atrial fibrillation, unspecified type (CMS/HCC V24, CMS/HCC V28); Essential hypertension, benign; Obstructive sleep apnea; Nonrheumatic mitral valve regurgitation; Stage 3 chronic kidney disease, unspecified whether stage 3a or 3b CKD (CMS/HCC V24, CMS/HCC V28); Patient has healthcare proxy; Right knee pain, unspecified chronicity; Need for prophylactic vaccination and inoculation against influenza 11/05/2025 12:10 PM EST Lab Draw Station - [address] Stage 3 chronic kidney disease, unspecified whether stage 3a or 3b CKD (CMS/HCC V24, CMS/HCC V28) 11/02/2025 10:45 AM EST Lab Draw Station [address] Vitamin D deficiency disease 10/16/2025 11:30 AM EST Office Visit [facility] [address] [facility] [address] [place] [address] Juan F Duenas MD Paroxysmal atrial fibrillation (CMS/HCC V24, CMS/HCC V28) (Primary Dx); Essential hypertension, benign; Nonrheumatic mitral valve regurgitation 10/16/2025 Telephone [facility] - [address] [place] [address] Juan F Duenas MD 08/24/2025 Telephone [facility] - [address] [place] [address] Juan F Duenas MD from Last 3 Months Immunizations Immunization Administration Dates Next Due H1N1 Inj Preservative Free 12/06/2009 Influenza Quadravalent, MDCK , 0.5ml, with preservative (Flucelvax) 6mo and older 10/01/2017 Influenza trivalent, 0.5mL ( Fluad) 65yo and older 11/12/2025,11/08/2024,10/25/2023,09/25,09/03/2021,09/21/2020,10/01/2019 ,08/11/2018,08/30/2016,09/11/2015,11/2013,09/01/2013,09/21/2012, 1,10/09/2010,12/06/2009,09/22/2007 Influenza, Unspecified 09/03/2021,09/21/2020,11/2013 Pneumococcal conjugate 13 va [...] SQUAMOUS CELL CA; COMMENT: 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 For example, early childhood lead teacher or elderly care for an [...] 12 11/12/2025 11:41 AM EST Oxygen Saturation 99% 10/16/2025 10:59 AM EST Inhaled Oxygen Concentration - - Weight 68.9 kg (152 lb) 11/12/2025 11:41 AM EST Height 162.6 cm (5' 4 ) 11/12/2025 11:41 AM EST Body Mass Index 26.09 11/12/2025 11:41 AM EST Plan of Treatment Upcoming Encounters Date Type Department Care Team (Late st Contact Info) Description 05/13/2026 9:30 AM EDT Office Visit Adult Medicine [facility] [address] [place], [place] [phone] Mane Beckwith, EILEEN [address] [place], [place] 05/15/2026 9:45 AM EDT Office Visit Pulmonology - [place] [address] [facility] [address] [place] [phone] Gailleo Urrutia MD [address] [place] [address] Health Maintenance Due Date Last Done Comments Drug Screen 1950 Non-Opioid Controlled Substance Agreement 1950 Zoster Vaccines (1 of 2) 05/04/2013 03/09/2013 RSV Immunization Adult Patients (1 - 1-dose 75+ series) 2024 COVID-19 Vaccine ( season) 2025 09/25/2021, 03/27/2021, 03/06/2021 Hypertension/CHF/CAD Annual BMP Blood Test 11/05/2026 11/05/2025, 11/05/2025, 01/31/2025, Additional history exists Social Influencers of Health Screening 11/08/2026 11/08/2025 Falls Risk Assessment 11/12/2026 11/12/2025 , 11/07/2024, 10/25/2023 Medicare Annual Wellness Visit 11/12/2026 11/12/2025 Cholesterol Screening (Lipid Panel) 11/01/2029 11/01/2024, 05/26/2023 DTaP,Tdap,and Td Vaccines (5 - Td or Tdap) 10/25/2033 10/25/2023, 01/19/2012, 06/11/2003, Additional history exists Hepatitis C Screening Completed 03/11/2013 Pneumococcal Vaccine: 50+ Years Completed 10/19/2016, 09/11/2015 Colorectal Cancer Screening: Colonoscopy Discontinued 12/30/2017 Depression Screening Completed 11/08/2025, 10/25/20 Influenza Vaccine Completed 11/12/2025, , 10/25/2023, Additional history exists HIB Vaccines Aged Out No longer eligi [...] Associated Diagnosis Comments BASIC METABOLIC PANEL Routine 11/05/2025 12:16 PM EST Stage 3 chronic kidney disease, unspecified whether stage 3a or 3b CKD ([facility] V24, [facility] V28) MICROALBUMIN CREATININE URINE RATIO Routine 11/05/2025 12:16 PM EST Stage 3 chronic kidney disease, unspecified whether stage 3a or 3b CKD ([facility] V24, [facility] V28) PARATHYROID HORMONE INTACT Routine 11/05/2025 12:16 PM EST Stage 3 chronic kidney disease, unspecified whether stage 3a or 3b CKD ([facility] V24, [facility] V28) VITAMIN D 25 HYDROXY Routine 11/02/2025 10:52 AM EST Vitamin D deficiency disease ECG 12-LEAD Routine 10/16/2025 11:12 AM EST Paroxysmal atrial fibrillation ([facility] V24, [facility] V28) LIPID PANEL WITH REFLEX TO DIRECT LDL Routine 11/01/2024 10:36 AM EST Hyperglycemia DEPRESSION SCREENING Routine 10/25/2023 FALLS RISK ASSESSMENT Routine 10/25/2023 HM COLONOSCOPY Routine 12/30/2017 HEPATITIS C SCREENING Routine 03/11/2013 from Last 3 Months or Most Recently Relevant to Health Maintenance Results * Microalbumin creatinine urine ratio (11/05/2025 12:16 PM EST) Creatinine, Urine 71.0 mg/dL 11/05/2025 4:[address] [facility] Microalb, Ur <3.0 0.0 - 29.0 mg/L 11/05/2025 4:[address] [facility] Microalb/Creat Ratio <4 <30 mg/g creat 11/05/2025 4:[address] [facility] Urine Urine specimen obtained by clean catch procedure / Unknown Non-blood Collection / Unknown 11/05/2025 12:16 PM EST 11/05/2025 12:16 PM EST Juancho Prather MD LAB URINE ORDERABLES Final Res ult Performing Organization Address City/[facility]/ZIP Co de Phone Number [facility] [address] [place] [address], [place] [phone] * Parathyroid hormone intact (11/05/2025 12:16 PM EST) PTH 55.4 18.5 - 88.0 pcg/mL 11/05/2025 6:15 PM [facility] Blood Venous blood specimen / Unknown Venipuncture / Unknown 11/05/2025 12:16 PM EST 11/05/2025 12:16 PM EST Juancho Prather MD LAB BLOOD ORDERABLES Final Res ult Performing Organization Address City/[facility]/ZIP Co de Phone Number [facility] [address] [place] [address], [place] [phone] * (ABNORMAL) Basic metabolic panel (11/05/2025 12:16 PM EST) Sodium 134 133 - 145 mmol/L 11/05/2025 6:19 PM [facility] Potassium 3.9 3.5 - 5.5 mmol/L 11/05/2025 6:19 PM [facility] Chloride 100 96 - 110 mmol/L 11/05/2025 6:19 PM [facility] CO2 26 21 - 32 mmol/L 11/05/2025 6:19 PM [facility] Anion Gap 8 3 - 11 11/05/2025 6:19 PM [facility] Glucose 85 70 - 100 mg/dL 11/05/2025 6:[address] [facility] BUN 35(H) 5 - 25 mg/dL 11/05/2025 6:19 PM [facility] Creatinine 1.49(H) 0.70 - 1.30 mg/dL 11/05/2025 6:19 PM [facility] eGFR 49(L) >=60 mL/min/1. 73m2 11/05/2025 6:19 PM [facility] Comment:Calculation based on the Chronic Kidney Disease Epidemiology Collaboration (CKD-EPI) equation refit without adjustment for race. BUN/Creatinine Ratio 23.5 11/05/2025 6:19 PM [facility] Calcium 9.4 8.5 - 10.5 mg/dL 11/05/2025 6:19 PM [facility] Blood Venous blood specimen / Unknown Venipuncture / Unknown 11/05/2025 12:16 PM EST 11/05/2025 12:16 PM EST us Juancho Prather MD LAB BLOOD ORDERABLES Final Res ult [facility] [address] [place] [address], * Vitamin D 25 hydroxy (11/02/2025 10:52 AM EST) Vit D, 25-Hydroxy 59.5 30.0 - 80.0 ng/mL 11/02/2025 3:[address] [facility] Blood Venous blood specimen / Unknown Venipuncture / Unknown 11/02/2025 10:52 AM EST 11/02/2025 10:52 AM EST us Sarai Bailey MD LAB BLOOD ORDERABLES Final Resul t [facility] [address] [place] [address], [place] [phone] * ECG 12 lead (10/16/2025 11:12 AM EST) Ventricular Rate ECG 57 BPM GEMUSE Atrial Rate 55 BPM GEMUSE QRS Duration 100 ms GEMUSE Q-T Interval 426 ms GEMUSE QTc 414 ms GEMUSE R [place] -51 degrees GEMUSE T [place] 55 degrees GEMUSE ECG Interpretation Atrial fibrillation [...] MD ECG ORDERABLES Edited Result - Final BRANDEE * Lipid panel with reflex to direct LDL (11/01/2024 10:36 AM EST) Cholesterol 137 0 - 200 mg/dL LAB CHEMISTRY METHOD 11/01/2024 2:[address] [facility] Triglycerides 70 0 - 150 mg/dL LAB CHEMISTRY METHOD 11/01/2024 2:[address] [facility] HDL 43 >=40 mg/dL LAB CHEMISTRY METHOD 11/01/2024 2:[address] [facility] LDL Calculated 80 0 - 100 mg/dL LAB CHEMISTRY METHOD 11/01/2024 2:[address] [facility] VLDL Cholesterol Rogelio 14 mg/dL LAB CHEMISTRY METHOD 11/01/2024 2:[address] [facility] Non HDL Chol. (LDL+VLDL) 94 <145 mg/dL LAB CHEMISTRY METHOD 11/01/2024 2:[address] [facility] Chol/HDL Ratio 3.2 0.0 - 4.4 LAB CHEMISTRY METHOD 11/01/2024 2:[address] [facility] Blood Venous blood specimen / Unknown Venipuncture / Unknown 11/01/2024 10:36 AM EST 11/01/2024 10:36 AM EST Sarai Bailey MD LAB BLOOD ORDERABLES Final Resul t [facility] [address] [place] [address], * Falls Risk Assessment (10/25/2023) [facility] Falls Risk Assessment Abstracted Historical Provider HEALTH MAINTENANCE Final Result * Depression Screening (10/25/2023) Pathologist [facility] Depression Screening Abstracted Historical Provider HEALTH MAINTENANCE Final Result * Colonoscopy (12/30/2017) Pathologist [facility] Colonoscopy No interpretatio n, abstraced Anatomical Region Laterality Modality Other Historical Provider HEALTH MAINTENANCE Final Result * Hepatitis C Screening (03/11/2013) Pathologist [facility] Hepatitis C Screening Abstracted Historical Provider HEALTH MAINTENANCE Final Result from Last 3 Months or Most Recently Relevant to Health Maintenance Insurance MEDICARE [facility] Care Teams Union Steward Relationship Specialty Start Date End Date Sarai Bailey MD [address] [place] [address] PCP - General 03/23/1998
--- NOTE | 2025-11-16 09:33 | A.OFFVIS_ITS ---
Intake Visit Reasons: 4M PSA(set) Intake Note: Reason for Visit: PSA Follow up Urology Meds: Tamsulosin, Dutasteride Blood Thinners: None Labs: PSA- 1.90 (10/30/2025) Last PSA- 4.54 (07/05/2025) Imaging: None Last PVR: 15ml Wet Silk Hanger Required: No Accompanied by: Self / Same As Patient Allergies lisinopril Allergy (Unknown, Verified 11/16/25 09:37) Unknown HPI Comments Details: Chandler CHANG is a very pleasant male. He is a patient of Dr Bailey. He is seen for the following urologic conditions. - lower urinary tract symptoms - left-sided spermatocele Great response to dutasteride PSA fall from 4.5-1.9 [place] his prostate got smaller and his flow improved Bladder ultrasound 60 g prostate DON 2+, small superficial vascular nodule left apex Current medication bacteria Wednesday and Wednesday Lower Urinary Tract Symptoms:? Remained stable with alpha-armida ?05/15 surgery with retention and catheter at [facility]. Initial placed on alpha armida..? Current treatment includes?medication, alpha armida, 5AR.? Prostate Symptom Score?01/16 , Moderate (9-19), Bother 3.? Symptoms include?01/16 , incomplete emptying, weak stream, nocturia (>2), and are progressing ?07/16 , weak stream, nocturia (>2), and are improving.? Prior Prostate Score?unknown.? PSA?06/15 2.9, 01/17 1.4, 01/18 1.2, 05/20 0.9, 06/20 0.6, 07/23 4.5, 11/22 1.9 Spermatocele Bilateral Left 3-4 cm - minimal bother PFSH Medical History BPH (benign prostatic hyperplasia) Essential hypertension, benign Acquired torsion dystonia Diverticulosis of colon Mitral regurgitation Right knee meniscal tear History of squamous cell carcinoma Microscopic hematuria Nocturia Weak urinary stream H/O urinary retention Bladder outlet obstruction Surgical History History of surgery Review of Systems Const Denies chills and Denies fever(s) Card Reports no additional complaints and Denies syncope Resp Denies cough GI Denies abdominal pain and Denies heartburn Reports as per HPI and Denies change in libido Neuro Denies syncope Psych Denies change in libido Endo Denies change in libido Physical Exam Const General: cooperative, healthy appearing, comfortable and no acute distress Orientation/consciousness: patient oriented x3 HEENT Face and sinus: Yes normal facial exam Mouth: moist mucous membranes Neck Neck: Yes normal visual inspection, Yes full ROM and Yes trachea midline Chest Chest palpation & inspection: normal inspection of the chest Resp Effort & Inspection: normal respiratory effort, able to speak in complete sentences and no respiratory distress GI Inspection: Yes normal to inspection Back/Spine/Pelvis Cervical Spine: normal cervical lordosis Thoracic/Lumbar Spine: thoracic and lumbar spine normal to inspection Skin General skin exam: no rashes or lesions noted Neuro General: patient oriented x3, gait normal, tone normal and moves all extremities Extrem General: Yes normal to inspection and Yes capillary refill normal Assessment & Plan Assessment & Plan (1) BPH (benign prostatic hyperplasia): Code(s): N40.0 - Benign prostatic hyperplasia without lower urinary tract symptoms Category: Medical (2) Elevated PSA: Code(s): R97.20 - Elevated prostate specific antigen [PSA] Category: Medical Plan Six-month follow-up PSA office Orders: Orders Prostate Specific Antigen 6 Months R97.20 - Elevated prostate specific antigen [PSA] Patient Instructions: This note is constructed using voice recognition software. While every effort has been made to ensure accuracy grades 9 12 tutor errors may have been included. Imaging studies, laboratory and physical exam results were discussed and reviewed in detail. No major barriers to patient understanding were identified. An opportunity to ask questions regarding the treatment plan was provided. All questions were answered. The patient expressed understanding and agreement with the above treatment plan. The patient is aware they should contact our office by phone for worsening of their current condition or the appearance of new urologic symptoms. Compliance is encouraged with any medications and followup testing that is ordered. It is a privilege to participate in the urologic care of your patient. If you have any questions or concerns regarding treatment for the above conditions, or other urologic issues, please do not hesitate to contact me. The office telephone contact is [phone]. Sincerely, Dr Derrek Duong MD, [facility] - Urology Compassionate Specialist Care for the Genitourinary System Coding Level of Care Code Est Pt Level 3 (67541) Diagnoses BPH (benign prostatic hyperplasia) N40.0 Elevated PSA R97.20
== END 2025-11-16 10:05 | disposition home or self-care (01) ==
LOC: HO.HUSH 09:06
PROVIDERS: PCP Internal Medicine; Visit Provider Urology
DX: N40.0 Benign prostatic hyperplasia without lower urinary tract symptoms (principal); R97.20 Elevated prostate specific antigen [PSA]
CPT/HCPCS: 99213

== ENCOUNTER → 2025-11-16 09:05 | Outpatient (BNVA) | payer MEDICARE, SELFPAY | PROVIDERS: PCP Internal Medicine; Visit Provider Urology | DX: R97.20 Elevated prostate specific antigen [PSA] (principal); N40.0 Benign prostatic hyperplasia without lower urinary tract symptoms | CPT/HCPCS: 99212 ==